=== PATIENT | female | born 1945 | race Caucasian/White ===

== ENCOUNTER 2020-10-17 13:02 | Inpatient (IN) | payer OTHER, MEDICARE ==
[~2020-10-17] VITALS: Ht 144.8 cm; Wt 59.0 kg
[~2020-10-17 13:02] MED LIST: AMLO10 PO; AMOCLA875 PO; Flomax0.4 MG PO; HAWTHORN BERRI565 MG PO; LISI5 PO; LOSA50 PO; Loperamide2 MG PO; METF500C PO; METO50 PO; NATURAL LUTEIN20 MG PO; ONDA4ODT MM; PROC5 PO; Percocet 5-3251 EACH PO; Zofran Odt8 MG SL; Zofran8 MG PO
[2020-10-17 13:22] LABS: BASOPHILS PERCENT AUTO 1 % (0-2); EOSINOPHILS PERCENT AUTO 1 % (0-6); Hemoglobin 13.6 g/dL (11.5-16.0); IMMATURE GRAN ABSOLUTE AUTO 0.94 K/mm3 (0.00-0.10); IMMATURE GRAN PERCENT AUTO 5 % (0-1); LYMPHOCYTES ABSOLUTE AUTO 3.18 K/mm3 (0.84-5.20); LYMPHOCYTES PERCENT AUTO 18 % (21-46); MONOCYTES PERCENT AUTO 3 % (4-13); Mean Corpuscular HGB 31.1 pg (26.0-34.0); Mean Corpuscular Volume 91 fL (80-100); Mean Platelet Volume 10.6 fL (9.1-12.4); NEUTROPHILS ABSOLUTE AUTO 12.86 K/mm3 (1.96-9.15); NEUTROPHILS PERCENT AUTO 72 % (41-73); Platelet Count 309 K/mm3 (150-400); RDW Coefficient Variation 12.5 % (11.7-14.2); RDW Standard Deviation 41.1 fL (35.1-46.3); Red Blood Cell Count 4.38 M/mm3 (3.80-5.20); White Blood Cell Count 17.88 K/mm3 (4.00-11.30)
[2020-10-17 13:37] LABS: International Normalized Ratio 1.05; Prothrombin Time Results 11.3 Sec (9.7-11.5)
[2020-10-17 13:47] LABS: Alanine Aminotransfer (ALT/SGP 71 U/L (12-78); Albumin, Blood 3.4 g/dL (3.4-5.0); Albumin/Globulin Ratio 1.2 (0.8-1.8); Alk Phos 89 U/L (50-136); Anion Gap 8 mmol/L (6-16); Aspartate Aminotrans (AST/SGOT 65 U/L (12-37); Bilirubin, Total 0.8 mg/dL (0.1-1.0); Blood Urea Nitrogen 17 mg/dL (8-24); CO2, Blood 25 mmol/L (21-32); Calcium, Blood 8.7 mg/dL (8.5-10.1); Chloride, Blood 106 mmol/L (98-108); Creatinine, Blood 0.81 mg/dL (0.40-1.00); Ethanol (Alcohol), Blood, Med <3 mg/dL; Globulin, Blood 2.9 g/dL (2.2-4.0); Glomerular Filtration Rate >60 (60-); Glucose, Blood 220 mg/dL (70-99); Potassium, Blood 3.2 mmol/L (3.5-5.5); Sodium, Blood 139 mmol/L (136-145); Total Protein, Blood 6.3 g/dL (6.4-8.2)
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
[2020-10-17 14:46] LABS: Source, Urine Voided
[2020-10-17 15:09] LABS: Appearance, Urine Clear (Clear); Bilirubin, Urine Neg (Neg); Blood, Urine 3+ (Neg); Color, Urine Yellow (P-Yellow); Glucose Qualitative, Urine Neg (Neg); Ketones, Urine 1+ (Neg); Leukocyte Esterase, Urine Neg (Neg); Nitrite, Urine Neg (Neg); Protein, Urine 1+ (Neg); Urobilinogen, Urine NORM (Normal); pH, Urine 6.5 (5.0-8.0)
[2020-10-17 15:36] LABS: Bacteria Few /hpf; Squamous Epithelial Cells Rare /hpf (Few); White Blood Cells, Urine 0-2 /hpf (0-5)
[2020-10-17] MEDS ORDERED: Norco 5-325 Ta1 EACH PO (16:56)
[2020-10-17 17:24] LABS: U Amphetamine Screen Not Detected; U Barbituate Screen Not Detected; U Benzodiazapine Screen Not Detected; U Buprenorphine Screen Not Detected; U Cannabinoids Screen Not Detected; U Cocaine Screen Not Detected; U Methadone Screen Not Detected; U Methamphetamine Screen Not Detected; U Opiates Screen Not Detected; U Oxycodone Screen Not Detected; U Phencyclidine Screen Not Detected
[2020-10-17 17:25] LABS: U Propoxyphene Screen Not Detected
--- NOTE | 2020-10-17 23:05 | NUR ---
RECEIVED REPORT FROM BELKIS ESCALERA RN. PT TRANSPORTED TO MEDICAL FLOOR VIA GURNEY, TRANSFERRED TO BED VIA SLIDE SHEET. C COLLAR IN PLACE. PT AWAKE AND ALERT, ANSWERS QUESTIONS APPROPRIATELY, BUT FALLS ASLEEP EASILY MID-CONVERSATION. DENIES ZUÑIGA. PT SITUATED IN BED, PARTIAL BED BATH GIVEN, TOLERATED WELL. DRSG APPLIED TO POSTERIOR HEAD LACERATION, MODERATE AMOUNT OF SANGUINEOUS DRAINAGE NOTED. DENIES PAIN AT THIS TIME. REMINDED PT TO INFORM STAFF IF PT IS EXPERIENCING PAIN. INDICATED UNDERSTANDING. CALL LIGHT, POSSESSIONS IN REACH, BED IN LOW AND LOCKED POSITION WITH ALARMS ON.
[2020-10-18 01:24] LABS: BASOPHILS ABSOLUTE AUTO 0.02 K/mm3 (0.00-0.23); BASOPHILS PERCENT AUTO 0 % (0-2); EOSINOPHILS PERCENT AUTO 0 % (0-6); Hematocrit 34.2 % (33.0-51.0); Hemoglobin 11.6 g/dL (11.5-16.0); IMMATURE GRAN ABSOLUTE AUTO 0.03 K/mm3 (0.00-0.10); IMMATURE GRAN PERCENT AUTO 0 % (0-1); LYMPHOCYTES PERCENT AUTO 9 % (21-46); MONOCYTES ABSOLUTE AUTO 0.83 K/mm3 (0.16-1.47); MONOCYTES PERCENT AUTO 8 % (4-13); Mean Corpuscular HGB 31.2 pg (26.0-34.0); Mean Corpuscular HGB Conc 33.9 g/dL (31.5-36.5); Mean Corpuscular Volume 92 fL (80-100); Mean Platelet Volume 10.6 fL (9.1-12.4); NEUTROPHILS ABSOLUTE AUTO 9.03 K/mm3 (1.96-9.15); NEUTROPHILS PERCENT AUTO 83 % (41-73); Platelet Count 217 K/mm3 (150-400); RDW Coefficient Variation 12.6 % (11.7-14.2); RDW Standard Deviation 42.3 fL (35.1-46.3); Red Blood Cell Count 3.72 M/mm3 (3.80-5.20); White Blood Cell Count 10.91 K/mm3 (4.00-11.30)
[2020-10-18 01:50] LABS: Anion Gap 5 mmol/L (6-16); Blood Urea Nitrogen 20 mg/dL (8-24); Bun/Creatinine Ratio 21.2 (12.0-20.0); CO2, Blood 26 mmol/L (21-32); Calcium, Blood 7.9 mg/dL (8.5-10.1); Chloride, Blood 105 mmol/L (98-108); Creatinine, Blood 0.94 mg/dL (0.40-1.00); Glomerular Filtration Rate >60 (60-); Glucose, Blood 275 mg/dL (70-99); Phosphorus, Blood 4.7 mg/dL (2.5-4.9); Potassium, Blood 4.1 mmol/L (3.5-5.5); Sodium, Blood 136 mmol/L (136-145)
--- NOTE | 2020-10-18 07:20 | NUR ---
PRODUCTION ASSOCIATE SUMMARY PT ASLEEP, IN NAD. VS REVIEWED,WNL. INCREASINGLY PAINFUL THIS AM, MEDICATED PER EMAR WITH GOOD RELIEF. DRSGS CHANGED TO HEAD AND RFA, SMALL AMOUNT OF SANGUINEOUS DRAINAGE CONTINUES. PT TOLERATED WELL. SLEPT ON AND OFF T/O NIGHT. NO ACUTE NEEDS ASSESSED AT THIS TIME. C-COLLAR REMAINS IN PLACE. CALL LIGHT, POSSESSIONS IN REACH, BED IN LOW AND LOCKED POSITION WITH ALARMS ON. REPORT GIVEN TO RAMONA GONGORA.
--- NOTE | 2020-10-18 10:03 | NUR ---
echocardiogram completed
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
--- NOTE | 2020-10-18 19:37 | NUR ---
SUMM- PT A/O X4, SLEEPY THIS AND EASILY AROUSABLE BUT QUICKLY FALLS ASLEEP- STATED PAIN CONTROLLED WITH MORPHINE BUT RELUCTANT TO TAKE PAIN MEDS- PT HAS ASPEN C SPINE COLLAR IN PLACE AND WEARS AT ALL TIMES. PT GOT UP WITH PHYSICAL THERAPY AND AMBULATED IN THE ROOM. LAC TO HEAD WITH SKYLAR SCANT SS DRAINAGE. R ARM SUTURES WITH VASELINE GAUZE AND KERLEX. DAUGHTER AT BEDSIDE VISITING THIS AFTERNOON.
--- NOTE | 2020-10-19 05:57 | NUR ---
SHIFT SUMMARY PATIENT ALERT AND ORIENTED. WAS MEDICATED PER EMAR FOR PAIN. HAD NO COMPLAINTS OF NAUSEA OR SHORTNESS OF BREATH. PATIENT SLEPT WELL OVERNIGHT. NO ACUTE ISSUES NOTED. IV PATENT AND FLUSHED. BED IN LOWEST POSITION WITH WHEELS LOCKED AND ALARM ON. CALL LIGHT WITHIN REACH. REPORT GIVEN TO ONCOMING RN.
[2020-10-19 10:17] LABS: Anion Gap 4 mmol/L (6-16); Blood Urea Nitrogen 25 mg/dL (8-24); Bun/Creatinine Ratio 29.6 (12.0-20.0); CO2, Blood 28 mmol/L (21-32); Calcium, Blood 8.6 mg/dL (8.5-10.1); Chloride, Blood 102 mmol/L (98-108); Creatinine, Blood 0.84 mg/dL (0.40-1.00); Glomerular Filtration Rate >60 (60-); Glucose, Blood 212 mg/dL (70-99); Potassium, Blood 4.1 mmol/L (3.5-5.5); Sodium, Blood 134 mmol/L (136-145)
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
[2020-10-19] MEDS ORDERED: LISI5 PO (14:15)
[2020-10-19] MEDS ORDERED: METO25ER PO (14:15)
[2020-10-19] MEDS ORDERED: SPIR25 PO (14:15)
[2020-10-19] MEDS ORDERED: LASIX20 M2 PO (14:16)
[2020-10-19] MEDS ORDERED: METF500 PO (14:16)
--- NOTE | 2020-10-19 17:34 | NUR ---
SHIFT SUMMARY PT IS AOX4. PT MEDICATED FOR PAIN X1 THIS AM AND WAS DROWSY T/O SHIFT. PT DENIES N/V, SOB. PT IS ONE PERSON ASSIST FOR TRANSFERS. PT WORKED WITH PT/OT TODAY AND RECOMMENDATION IS HH. PT APPETITE IS GOOD. NO PROCEDURES PERFORMED THIS SHIFT. PT HAD A VISITOR THIS HEIDY. PLAN IS FOR POTENTIAL DC TOMORROW IF PT IS AMENABLE. PT IS IN CHAIR, CALL LIGHT IN REACH.
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
[2020-10-20 05:47] LABS: Anion Gap 5 mmol/L (6-16); Blood Urea Nitrogen 27 mg/dL (8-24); Bun/Creatinine Ratio 36.5 (12.0-20.0); CO2, Blood 31 mmol/L (21-32); Calcium, Blood 8.6 mg/dL (8.5-10.1); Chloride, Blood 98 mmol/L (98-108); Creatinine, Blood 0.74 mg/dL (0.40-1.00); Glomerular Filtration Rate >60 (60-); Glucose, Blood 215 mg/dL (70-99); Potassium, Blood 3.8 mmol/L (3.5-5.5); Sodium, Blood 134 mmol/L (136-145)
[2020-10-20] MEDS ORDERED: TRAM50 PO (14:13)
--- NOTE | 2020-10-20 17:03 | NUR ---
DISCHARGE NOTE PT IV REMOVED BY THIS RN. DC INSTRUCTIONS AND MEDICATIONS REVIEWED WITH PT WHO VERBALIZED AN UNDERSTANDING. PT ASSISTED INTO HOSPITAL PROVIDED PAPER SCRUBS BY [facility]. THIS RN GATHERED PT BELONGINGS. PT WILL BE STAYING WITH [facility] ALONG WITH ORDERS. PT FAMILY ARRANGED MEDICAL TRANSPORTATION. PT ASSISTED INTO WHEELCHAIR WITH BELONGINGS PRESENT. PT LEFT BUILDING WITH FOOD TESTER.
== END 2020-10-20 16:28 | disposition home health service (06) | DRG 551 ==
LOC: ER 13:02 → MEDS 13:04 → ER 20:01 → MEDS 20:01 → ENPENDDIS 10-19 14:32 → MEDS 10-19 23:06
PROVIDERS: Emergency Medicine; Family Medicine; Internal Medicine; ADMIT Surgery
PROC: 0HQDXZZ Repair Right Lower Arm Skin, External Approach (ICD-10-PCS; principal; 2020-10-17)
PROC: 0HQ0XZZ Repair Scalp Skin, External Approach (ICD-10-PCS; 2020-10-17)
PROC: 3E0234Z Introduction of Serum, Toxoid and Vaccine into Muscle, Percutaneous Approach (ICD-10-PCS; 2020-10-17)
DX: S32.018A Other fracture of first lumbar vertebra, initial encounter for closed fracture (principal); I50.43 Acute on chronic combined systolic (congestive) and diastolic (congestive) heart failure; S12.600A Unspecified displaced fracture of seventh cervical vertebra, initial encounter for closed fracture; I11.0 Hypertensive heart disease with heart failure; S32.028A Other fracture of second lumbar vertebra, initial encounter for closed fracture; S01.01XA Laceration without foreign body of scalp, initial encounter; S51.811A Laceration without foreign body of right forearm, initial encounter; Z23 Encounter for immunization; D72.829 Elevated white blood cell count, unspecified; E87.6 Hypokalemia; G47.33 Obstructive sleep apnea (adult) (pediatric); Z91.14 Patient's other noncompliance with medication regimen; E11.9 Type 2 diabetes mellitus without complications; Z88.1 Allergy status to other antibiotic agents; Z88.5 Allergy status to narcotic agent; Z79.84 Long term (current) use of oral hypoglycemic drugs; Z79.899 Other long term (current) drug therapy; Z87.891 Personal history of nicotine dependence; V49.9XXA Car occupant (driver) (passenger) injured in unspecified traffic accident, initial encounter
CPT/HCPCS: 12002; 36415; 51702; 70450; 71045; 71260; 72125; 74177; 80048; 80053; 80069; 81001; 82947; 83036; 83690; 83880; 85025; 85610; 86850; 86900; 86901; 90471; 90714; 93005; 93010; 93306; 94760; 94762; 96374-59; 96375-59; 96376; 97116; 97162; 97166; 97530; 99285-25; A9270; G0378; G0480; J1815; J1940; J2270; J2405; L0160; Q9967

== ENCOUNTER 2020-11-11 13:34 | Emergency (ER) | payer MEDICARE ==
[~2020-11-11] VITALS: Ht 144.8 cm; Wt 62.1 kg
[~2020-11-11 13:34] MED LIST changes: +LASIX20 M2 PO; +METF500 PO; +METO25ER PO; +Norco 5-325 Ta1 EACH PO; +SPIR25 PO; +TRAM50 PO
[2020-11-11 14:05] LABS: BASOPHILS ABSOLUTE AUTO 0.03 K/mm3 (0.00-0.23); BASOPHILS PERCENT AUTO 1 % (0-2); EOSINOPHILS ABSOLUTE AUTO 0.15 K/mm3 (0.00-0.68); EOSINOPHILS PERCENT AUTO 2 % (0-6); Hematocrit 36.6 % (33.0-51.0); Hemoglobin 12.2 g/dL (11.5-16.0); IMMATURE GRAN ABSOLUTE AUTO 0.01 K/mm3 (0.00-0.10); IMMATURE GRAN PERCENT AUTO 0 % (0-1); LYMPHOCYTES ABSOLUTE AUTO 0.96 K/mm3 (0.84-5.20); LYMPHOCYTES PERCENT AUTO 15 % (21-46); MONOCYTES ABSOLUTE AUTO 0.25 K/mm3 (0.16-1.47); MONOCYTES PERCENT AUTO 4 % (4-13); Mean Corpuscular HGB 30.5 pg (26.0-34.0); Mean Corpuscular HGB Conc 33.3 g/dL (31.5-36.5); Mean Corpuscular Volume 92 fL (80-100); Mean Platelet Volume 10.6 fL (9.1-12.4); NEUTROPHILS ABSOLUTE AUTO 5.14 K/mm3 (1.96-9.15); NEUTROPHILS PERCENT AUTO 79 % (41-73); Platelet Count 269 K/mm3 (150-400); RDW Coefficient Variation 12.7 % (11.7-14.2); RDW Standard Deviation 42.1 fL (35.1-46.3); White Blood Cell Count 6.54 K/mm3 (4.00-11.30)
[2020-11-11 14:25] LABS: Alanine Aminotransfer (ALT/SGP 25 U/L (12-78); Albumin, Blood 3.4 g/dL (3.4-5.0); Albumin/Globulin Ratio 1.1 (0.8-1.8); Alk Phos 143 U/L (50-136); Anion Gap 6 mmol/L (6-16); Aspartate Aminotrans (AST/SGOT 23 U/L (12-37); Bilirubin, Total 0.4 mg/dL (0.1-1.0); Blood Urea Nitrogen 19 mg/dL (8-24); Bun/Creatinine Ratio 27.4 (12.0-20.0); CO2, Blood 29 mmol/L (21-32); Calcium, Blood 9.1 mg/dL (8.5-10.1); Chloride, Blood 104 mmol/L (98-108); Creatinine, Blood 0.69 mg/dL (0.40-1.00); Globulin, Blood 3.1 g/dL (2.2-4.0); Glomerular Filtration Rate >60 (60-); Glucose, Blood 260 mg/dL (70-99); Potassium, Blood 3.7 mmol/L (3.5-5.5); Sodium, Blood 139 mmol/L (136-145); Total Protein, Blood 6.5 g/dL (6.4-8.2)
[2020-11-11 15:09] LABS: Source, Urine Clean Catch
[2020-11-11 15:13] LABS: Appearance, Urine Clear (Clear); Bilirubin, Urine Neg (Neg); Blood, Urine Neg (Neg); Color, Urine Yellow (P-Yellow); Glucose Qualitative, Urine 2+ (Neg); Ketones, Urine 2+ (Neg); Leukocyte Esterase, Urine 2+ (Neg); Nitrite, Urine Neg (Neg); Protein, Urine 2+ (Neg); Specific Gravity, Urine 1.025 (1.003-1.022); Urobilinogen, Urine NORM (Normal)
[2020-11-11 15:30] LABS: Red Blood Cells, Urine 0-2 /hpf (0-2)
[2020-11-11 15:31] LABS: Calcium Oxalate Crystals Many /hpf
[2020-11-11 15:32] LABS: Bacteria Rare /hpf; Squamous Epithelial Cells Few /hpf (Few)
[2020-11-11] MEDS ORDERED: ONDA4ODT MM (19:34)
[2020-11-12] MEDS ORDERED: FAMO20 PO (21:06)
[2020-11-12] MEDS ORDERED: METO10 PO (21:06)
== END 2020-11-11 20:11 | disposition home or self-care (01) ==
LOC: ER 13:34
PROVIDERS: Emergency Medicine; Student in an Organized Health Care Education/Training Program
DX: R11.2 Nausea with vomiting, unspecified (principal); I10 Essential (primary) hypertension; E11.9 Type 2 diabetes mellitus without complications; Z88.1 Allergy status to other antibiotic agents; Z88.5 Allergy status to narcotic agent; Z79.84 Long term (current) use of oral hypoglycemic drugs; Z87.891 Personal history of nicotine dependence
CPT/HCPCS: 36415; 71045; 74177; 80053; 81001; 83690; 84484; 85025; 87086; 93005; 93010; 96361; 96374-59; 96375; 99285-25; J1885; J2270; J2405; J2765; J7030; Q9967

== ENCOUNTER 2020-11-12 14:16 | Emergency (ER) | payer OTHER, MEDICARE ==
[~2020-11-12] VITALS: Ht 144.8 cm; Wt 62.1 kg
[~2020-11-12 14:16] MED LIST changes: -FAMO20 PO; -METO10 PO
[2020-11-12 17:04] LABS: BASOPHILS ABSOLUTE AUTO 0.01 K/mm3 (0.00-0.23); BASOPHILS PERCENT AUTO 0 % (0-2); EOSINOPHILS PERCENT AUTO 0 % (0-6); Hematocrit 34.3 % (33.0-51.0); Hemoglobin 11.3 g/dL (11.5-16.0); IMMATURE GRAN ABSOLUTE AUTO 0.03 K/mm3 (0.00-0.10); IMMATURE GRAN PERCENT AUTO 0 % (0-1); LYMPHOCYTES ABSOLUTE AUTO 0.78 K/mm3 (0.84-5.20); LYMPHOCYTES PERCENT AUTO 8 % (21-46); MONOCYTES ABSOLUTE AUTO 0.37 K/mm3 (0.16-1.47); MONOCYTES PERCENT AUTO 4 % (4-13); Mean Corpuscular HGB Conc 32.9 g/dL (31.5-36.5); Mean Corpuscular Volume 94 fL (80-100); NEUTROPHILS ABSOLUTE AUTO 8.51 K/mm3 (1.96-9.15); NEUTROPHILS PERCENT AUTO 88 % (41-73); Platelet Count 276 K/mm3 (150-400); RDW Coefficient Variation 13.2 % (11.7-14.2); RDW Standard Deviation 45.4 fL (35.1-46.3); Red Blood Cell Count 3.65 M/mm3 (3.80-5.20)
[2020-11-12 17:22] LABS: Alanine Aminotransfer (ALT/SGP 24 U/L (12-78); Albumin, Blood 3.4 g/dL (3.4-5.0); Albumin/Globulin Ratio 1.2 (0.8-1.8); Alk Phos 121 U/L (50-136); Anion Gap 5 mmol/L (6-16); Aspartate Aminotrans (AST/SGOT 22 U/L (12-37); Bilirubin, Total 0.5 mg/dL (0.1-1.0); Blood Urea Nitrogen 24 mg/dL (8-24); Bun/Creatinine Ratio 40.7 (12.0-20.0); CO2, Blood 26 mmol/L (21-32); Calcium, Blood 8.7 mg/dL (8.5-10.1); Chloride, Blood 108 mmol/L (98-108); Creatinine, Blood 0.59 mg/dL (0.40-1.00); Globulin, Blood 2.8 g/dL (2.2-4.0); Glomerular Filtration Rate >60 (60-); Glucose, Blood 287 mg/dL (70-99); Potassium, Blood 3.6 mmol/L (3.5-5.5); Sodium, Blood 139 mmol/L (136-145); Total Protein, Blood 6.2 g/dL (6.4-8.2)
--- NOTE | 2020-11-12 19:01 | NUR ---
Stat echo performed. Dr. Osuna notified.
[2020-11-12] MEDS ORDERED: FAMO20 PO (21:06)
[2020-11-12] MEDS ORDERED: METO10 PO (21:06)
== END 2020-11-12 21:40 | disposition home or self-care (01) ==
LOC: ER 14:16
PROVIDERS: Student in an Organized Health Care Education/Training Program
DX: R10.13 Epigastric pain (principal); I10 Essential (primary) hypertension; E11.9 Type 2 diabetes mellitus without complications; Z88.1 Allergy status to other antibiotic agents; Z88.5 Allergy status to narcotic agent; Z87.891 Personal history of nicotine dependence; Z79.899 Other long term (current) drug therapy
CPT/HCPCS: 36415; 71045; 76705; 80053; 83690; 84484; 85025; 93005; 93010; 93306; 96374; 96375; 96376; 99284-25; J1885; J1940

== ENCOUNTER → 2020-11-12 | Outpatient (CLI) | payer MEDICARE ==
[~2020-11-12] MED LIST changes: +FAMO20 PO; +METO10 PO
[2020-11-12 10:18] LABS: BASOPHILS ABSOLUTE AUTO 0.01 K/mm3 (0.00-0.23); BASOPHILS PERCENT AUTO 0 % (0-2); EOSINOPHILS ABSOLUTE AUTO 0.19 K/mm3 (0.00-0.68); EOSINOPHILS PERCENT AUTO 2 % (0-6); Hematocrit 36.2 % (33.0-51.0); Hemoglobin 12.4 g/dL (11.5-16.0); IMMATURE GRAN ABSOLUTE AUTO 0.03 K/mm3 (0.00-0.10); IMMATURE GRAN PERCENT AUTO 0 % (0-1); LYMPHOCYTES PERCENT AUTO 8 % (21-46); MONOCYTES PERCENT AUTO 5 % (4-13); Mean Corpuscular HGB 31.4 pg (26.0-34.0); Mean Corpuscular HGB Conc 34.3 g/dL (31.5-36.5); Mean Corpuscular Volume 92 fL (80-100); Mean Platelet Volume 10.9 fL (9.1-12.4); NEUTROPHILS ABSOLUTE AUTO 7.61 K/mm3 (1.96-9.15); NEUTROPHILS PERCENT AUTO 85 % (41-73); Platelet Count 289 K/mm3 (150-400); RDW Coefficient Variation 13.2 % (11.7-14.2); RDW Standard Deviation 43.8 fL (35.1-46.3); Red Blood Cell Count 3.95 M/mm3 (3.80-5.20); White Blood Cell Count 8.94 K/mm3 (4.00-11.30)
[2020-11-12 10:21] LABS: Anion Gap 10 mmol/L (6-16); Blood Urea Nitrogen 22 mg/dL (8-24); Bun/Creatinine Ratio 25.9 (12.0-20.0); CO2, Blood 29 mmol/L (21-32); Calcium, Blood 8.9 mg/dL (8.5-10.1); Chloride, Blood 102 mmol/L (98-108); Creatinine, Blood 0.85 mg/dL (0.40-1.00); Glomerular Filtration Rate >60 (60-); Glucose, Blood 313 mg/dL (70-99); Potassium, Blood 3.6 mmol/L (3.5-5.5); Sodium, Blood 141 mmol/L (136-145)
== END | disposition home or self-care (01) ==
LOC: LAB SHORT 10:13
PROVIDERS: Physician Assistant Surgical
DX: R11.2 Nausea with vomiting, unspecified (principal)
CPT/HCPCS: 80048; 85025

== ENCOUNTER → 2021-05-11 | Outpatient (CLI) | payer OTHER, MEDICARE ==
[~2021-05-11] MED LIST changes: +FAMO20 PO; +METO10 PO
[2021-05-11 11:46] LABS: BASOPHILS ABSOLUTE AUTO 0.01 K/mm3 (0.00-0.23); BASOPHILS PERCENT AUTO 0 % (0-2); EOSINOPHILS ABSOLUTE AUTO 0.01 K/mm3 (0.00-0.68); EOSINOPHILS PERCENT AUTO 0 % (0-6); Hematocrit 42.7 % (33.0-51.0); Hemoglobin 14.7 g/dL (11.5-16.0); IMMATURE GRAN ABSOLUTE AUTO 0.02 K/mm3 (0.00-0.10); IMMATURE GRAN PERCENT AUTO 0 % (0-1); LYMPHOCYTES ABSOLUTE AUTO 0.93 K/mm3 (0.84-5.20); LYMPHOCYTES PERCENT AUTO 16 % (21-46); MONOCYTES ABSOLUTE AUTO 0.61 K/mm3 (0.16-1.47); MONOCYTES PERCENT AUTO 11 % (4-13); Mean Corpuscular HGB 32.1 pg (26.0-34.0); Mean Corpuscular HGB Conc 34.4 g/dL (31.5-36.5); Mean Corpuscular Volume 93 fL (80-100); NEUTROPHILS ABSOLUTE AUTO 4.16 K/mm3 (1.96-9.15); NEUTROPHILS PERCENT AUTO 73 % (41-73); RDW Coefficient Variation 11.9 % (11.7-14.2); Red Blood Cell Count 4.58 M/mm3 (3.80-5.20); White Blood Cell Count 5.74 K/mm3 (4.00-11.30)
[2021-05-11 11:52] LABS: Mean Platelet Volume 11.4 fL (9.1-12.4)
[2021-05-11 12:01] LABS: Alanine Aminotransfer (ALT/SGP 24 U/L (12-78); Albumin, Blood 3.9 g/dL (3.4-5.0); Albumin/Globulin Ratio 1.4 (0.8-1.8); Alk Phos 78 U/L (40-126); Anion Gap 10 mmol/L (6-16); Aspartate Aminotrans (AST/SGOT 26 U/L (12-37); Bilirubin, Total 0.3 mg/dL (0.1-1.0); Blood Urea Nitrogen 18 mg/dL (8-24); Bun/Creatinine Ratio 26.1 (12.0-20.0); CO2, Blood 27 mmol/L (21-32); Calcium, Blood 8.7 mg/dL (8.5-10.1); Chloride, Blood 103 mmol/L (98-108); Creatinine, Blood 0.69 mg/dL (0.40-1.00); Globulin, Blood 2.7 g/dL (2.2-4.0); Glomerular Filtration Rate >60 (60-); Glucose, Blood 154 mg/dL (70-99); Potassium, Blood 3.8 mmol/L (3.5-5.5); Sodium, Blood 140 mmol/L (136-145); Total Protein, Blood 6.6 g/dL (6.4-8.2)
[2021-05-11 12:31] LABS: Platelet Count 155 K/mm3 (150-400)
== END ==
LOC: LAB SHORT 11:39
PROVIDERS: Family Medicine
DX: E86.0 Dehydration (principal); R13.19 Other dysphagia
CPT/HCPCS: 80053; 85025; 87081

== ENCOUNTER 2021-07-21 17:53 | Observation (INO) | payer MEDICARE ==
[~2021-07-21] VITALS: Ht 144.8 cm; Wt 53.2 kg
[2021-07-21 18:22] LABS: BASOPHILS ABSOLUTE AUTO 0.02 K/mm3 (0.00-0.23); BASOPHILS PERCENT AUTO 0 % (0-2); EOSINOPHILS PERCENT AUTO 0 % (0-6); Hematocrit 42.2 % (33.0-51.0); Hemoglobin 14.2 g/dL (11.5-16.0); IMMATURE GRAN ABSOLUTE AUTO 0.04 K/mm3 (0.00-0.10); IMMATURE GRAN PERCENT AUTO 0 % (0-1); LYMPHOCYTES ABSOLUTE AUTO 0.53 K/mm3 (0.84-5.20); LYMPHOCYTES PERCENT AUTO 6 % (21-46); MONOCYTES ABSOLUTE AUTO 0.14 K/mm3 (0.16-1.47); MONOCYTES PERCENT AUTO 2 % (4-13); Mean Corpuscular HGB 31.9 pg (26.0-34.0); Mean Corpuscular HGB Conc 33.6 g/dL (31.5-36.5); Mean Corpuscular Volume 95 fL (80-100); Mean Platelet Volume 11.8 fL (9.1-12.4); NEUTROPHILS PERCENT AUTO 92 % (41-73); Platelet Count 234 K/mm3 (150-400); RDW Coefficient Variation 12.3 % (11.7-14.2); RDW Standard Deviation 43.1 fL (35.1-46.3); Red Blood Cell Count 4.45 M/mm3 (3.80-5.20); White Blood Cell Count 9.13 K/mm3 (4.00-11.30)
[2021-07-21 18:34] LABS: Alanine Aminotransfer (ALT/SGP 48 U/L (12-78); Albumin, Blood 3.4 g/dL (3.4-5.0); Albumin/Globulin Ratio 1.3 (0.8-1.8); Alk Phos 69 U/L (50-136); Anion Gap 4 mmol/L (6-16); Aspartate Aminotrans (AST/SGOT 27 U/L (12-37); Bilirubin, Total 0.9 mg/dL (0.1-1.0); Blood Urea Nitrogen 29 mg/dL (8-24); Bun/Creatinine Ratio 41.5 (12.0-20.0); CO2, Blood 29 mmol/L (21-32); Chloride, Blood 105 mmol/L (98-108); Globulin, Blood 2.6 g/dL (2.2-4.0); Glomerular Filtration Rate >60 (60-); Glucose, Blood 348 mg/dL (70-99); Potassium, Blood 3.9 mmol/L (3.5-5.5); Sodium, Blood 138 mmol/L (136-145)
[2021-07-21] MEDS ORDERED: TORS10 PO (20:10)
[2021-07-21 22:15] LABS: Source, Urine Clean Catch
[2021-07-21 22:24] LABS: Appearance, Urine Clear (Clear); Bilirubin, Urine Neg (Neg); Blood, Urine Neg (Neg); Color, Urine Yellow (P-Yellow); Glucose Qualitative, Urine 4+ (Neg); Ketones, Urine 4+ (Neg); Leukocyte Esterase, Urine Neg (Neg); Nitrite, Urine Neg (Neg); Protein, Urine 1+ (Neg); Urobilinogen, Urine NORM (Normal)
--- NOTE | 2021-07-22 03:06 | NUR ---
ADMISSION: REPORT WAS RECIEVED FROM ER NURSE. PATIENT COMES TO FLOOR VIA STRETCHER. BP IS ELEVATED, PATIENT IS ASYMPTOMATIC. PATIENT IS ORIENTED TO ROOM AND CALL MUNOZ.
[2021-07-22 06:01] LABS: Influenza A, PCR NEGATIVE (NEGATIVE); Influenza B, PCR NEGATIVE (NEGATIVE); Resp Syncytial Virus, PCR NEGATIVE (NEGATIVE); SARS-Cov-2 (COVID-19) PCR, MMC NEGATIVE (NEGATIVE)
--- NOTE | 2021-07-22 06:47 | NUR ---
SHIFT SUMMARY: DR HAQUE WAS NOTIFIED OF BLOOD GLUCOSE LEVEL AT 375. D51/2 NS WAS INFUSING AT 150. IVF ARE CHANGED TO NS @75X 1 BAG. CLEAR LIQUID DIET IS ALSO ORDERED ALONG WITH TELI. PATIENT WAS ASSISTED TO THE BATHROOM WITH SBA OF 1, WEAK BUT STEADY GAIT IS OBSERVED. NO NAUSEA REPORTED.
--- NOTE | 2021-07-22 16:34 | NUR ---
SHIFT SUMMARY A/OX4, SBA TO BATHROOM. PT ABLE TO SHOWER TODAY BUT STATES SHE STILL FEELS VERY WEAK. TOLERATING CLEAR LIQUID DIET. HOSPITALIST NOTIFIED OF RECENT BLOOD SUGARS. VSS, NO ACUTE CHANGES AT THIS TIME. BED IN LOWEST POSITION WITH CALL LIGHT IN REACH. WILL CONTINUE TO MONITOR AND REPORT TO ONCOMING RN.
[2021-07-23 04:17] LABS: BASOPHILS ABSOLUTE AUTO 0.04 K/mm3 (0.00-0.23); BASOPHILS PERCENT AUTO 0 % (0-2); EOSINOPHILS ABSOLUTE AUTO 0.07 K/mm3 (0.00-0.68); EOSINOPHILS PERCENT AUTO 1 % (0-6); Hematocrit 41.5 % (33.0-51.0); IMMATURE GRAN ABSOLUTE AUTO 0.03 K/mm3 (0.00-0.10); IMMATURE GRAN PERCENT AUTO 0 % (0-1); LYMPHOCYTES ABSOLUTE AUTO 1.11 K/mm3 (0.84-5.20); LYMPHOCYTES PERCENT AUTO 10 % (21-46); MONOCYTES ABSOLUTE AUTO 0.63 K/mm3 (0.16-1.47); MONOCYTES PERCENT AUTO 6 % (4-13); Mean Corpuscular HGB 31.9 pg (26.0-34.0); Mean Corpuscular HGB Conc 33.7 g/dL (31.5-36.5); Mean Corpuscular Volume 95 fL (80-100); Mean Platelet Volume 11.2 fL (9.1-12.4); NEUTROPHILS PERCENT AUTO 83 % (41-73); Platelet Count 247 K/mm3 (150-400); RDW Coefficient Variation 12.2 % (11.7-14.2); Red Blood Cell Count 4.39 M/mm3 (3.80-5.20); White Blood Cell Count 11.08 K/mm3 (4.00-11.30)
[2021-07-23 04:36] LABS: Alanine Aminotransfer (ALT/SGP 54 U/L (12-78); Albumin, Blood 3.2 g/dL (3.4-5.0); Albumin/Globulin Ratio 1.2 (0.8-1.8); Alk Phos 68 U/L (50-136); Anion Gap 6 mmol/L (6-16); Aspartate Aminotrans (AST/SGOT 36 U/L (12-37); Bilirubin, Total 0.6 mg/dL (0.1-1.0); Blood Urea Nitrogen 26 mg/dL (8-24); Bun/Creatinine Ratio 34.4 (12.0-20.0); CO2, Blood 31 mmol/L (21-32); Chloride, Blood 101 mmol/L (98-108); Creatinine, Blood 0.76 mg/dL (0.40-1.00); Globulin, Blood 2.7 g/dL (2.2-4.0); Glomerular Filtration Rate >60 (60-); Glucose, Blood 173 mg/dL (70-99); Potassium, Blood 3.2 mmol/L (3.5-5.5); Sodium, Blood 138 mmol/L (136-145); Total Protein, Blood 5.9 g/dL (6.4-8.2)
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
[2021-07-23] MEDS ORDERED: GLIP2.5ER PO (10:57)
[2021-07-23] MEDS ORDERED: METO50ER PO (10:58)
[2021-07-23] MEDS ORDERED: METF500C PO (10:58)
--- NOTE | 2021-07-23 11:32 | NUR ---
PATIENT D/C'D TO HOME. HOME HEALTH ORDERED, HOWEVER PATIENT IS REFUSING. DR. FRASER NOTIFIED. F/U APPT MADE FOR SATURDAY 07/29 WITH PCP. DC INSTUCTIONS AND EDUCATION DISCUSSED WITH PATIENT AND COPY PROVIDED. RX MEDICATIONS FAXED TO [facility]. PATIENT DENIES ANY FURTHER QUESTIONS OR CONCERNS.
== END 2021-07-23 11:30 | disposition home health service (06) ==
LOC: ER 17:53 → MEDS 17:54
PROVIDERS: Emergency Medicine; Physician Assistant; ADMIT Internal Medicine
DX: K52.9 Noninfective gastroenteritis and colitis, unspecified (principal); B02.9 Zoster without complications; E86.0 Dehydration; I31.3 Pericardial effusion (noninflammatory); I11.0 Hypertensive heart disease with heart failure; I50.9 Heart failure, unspecified; E11.65 Type 2 diabetes mellitus with hyperglycemia; G47.30 Sleep apnea, unspecified; Z91.14 Patient's other noncompliance with medication regimen; Z87.891 Personal history of nicotine dependence; Z79.82 Long term (current) use of aspirin; Z20.822 Contact with and (suspected) exposure to COVID-19
CPT/HCPCS: 0241U; 36415; 74177; 80053; 82947; 85025; 86850; 86900; 86901; 93005; 93010; 96374; 96375; 99285-25; A9270; C9113; G0378; J0780; J1815; J2550; J7030; J7042; Q9967

== ENCOUNTER → 2021-08-13 | Outpatient (CLI) | payer MEDICARE ==
[~2021-08-13] MED LIST changes: +GLIP2.5ER PO; +METO50ER PO; +TORS10 PO
[2021-08-13 11:38] LABS: BASOPHILS ABSOLUTE AUTO 0.03 K/mm3 (0.00-0.23); BASOPHILS PERCENT AUTO 1 % (0-2); EOSINOPHILS ABSOLUTE AUTO 0.05 K/mm3 (0.00-0.68); EOSINOPHILS PERCENT AUTO 1 % (0-6); Hematocrit 39.1 % (33.0-51.0); Hemoglobin 13.4 g/dL (11.5-16.0); IMMATURE GRAN ABSOLUTE AUTO 0.01 K/mm3 (0.00-0.10); IMMATURE GRAN PERCENT AUTO 0 % (0-1); LYMPHOCYTES ABSOLUTE AUTO 1.14 K/mm3 (0.84-5.20); LYMPHOCYTES PERCENT AUTO 20 % (21-46); MONOCYTES ABSOLUTE AUTO 0.27 K/mm3 (0.16-1.47); MONOCYTES PERCENT AUTO 5 % (4-13); Mean Corpuscular HGB 32.4 pg (26.0-34.0); Mean Corpuscular HGB Conc 34.3 g/dL (31.5-36.5); Mean Corpuscular Volume 94 fL (80-100); NEUTROPHILS ABSOLUTE AUTO 4.31 K/mm3 (1.96-9.15); NEUTROPHILS PERCENT AUTO 74 % (41-73); Platelet Count 221 K/mm3 (150-400); RDW Coefficient Variation 13.2 % (11.7-14.2); RDW Standard Deviation 45.9 fL (35.1-46.3); Red Blood Cell Count 4.14 M/mm3 (3.80-5.20); White Blood Cell Count 5.81 K/mm3 (4.00-11.30)
[2021-08-13 11:57] LABS: Albumin, Blood 3.1 g/dL (3.4-5.0); Albumin/Globulin Ratio 1.2 (0.8-1.8); Bilirubin, Total 0.9 mg/dL (0.1-1.0); Bun/Creatinine Ratio 28.7 (12.0-20.0); Calcium, Blood 8.8 mg/dL (8.5-10.1); Creatinine, Blood 1.01 mg/dL (0.40-1.00); Globulin, Blood 2.5 g/dL (2.2-4.0); Potassium, Blood 3.8 mmol/L (3.5-5.5); Thyroid Stimulating Hormone 2.515 uIU/mL (0.360-4.800); Total Protein, Blood 5.6 g/dL (6.4-8.2)
== END | disposition home or self-care (01) ==
LOC: LAB SHORT 11:33
PROVIDERS: Chiropractor
DX: R22.43 Localized swelling, mass and lump, lower limb, bilateral (principal); R53.83 Other fatigue
CPT/HCPCS: 80053; 83880; 84443; 85025

== ENCOUNTER → 2022-03-10 | Outpatient (CLI) | payer OTHER ==
[2022-03-10 17:23] LABS: BASOPHILS ABSOLUTE AUTO 0.07 K/mm3 (0.00-0.23); BASOPHILS PERCENT AUTO 1 % (0-2); EOSINOPHILS ABSOLUTE AUTO 0.14 K/mm3 (0.00-0.68); EOSINOPHILS PERCENT AUTO 2 % (0-6); Hematocrit 40.8 % (33.0-51.0); Hemoglobin 13.9 g/dL (11.5-16.0); IMMATURE GRAN ABSOLUTE AUTO 0.01 K/mm3 (0.00-0.10); IMMATURE GRAN PERCENT AUTO 0 % (0-1); LYMPHOCYTES ABSOLUTE AUTO 1.26 K/mm3 (0.84-5.20); LYMPHOCYTES PERCENT AUTO 18 % (21-46); MONOCYTES PERCENT AUTO 6 % (4-13); Mean Corpuscular HGB 33.7 pg (26.0-34.0); Mean Corpuscular HGB Conc 34.1 g/dL (31.5-36.5); Mean Corpuscular Volume 99 fL (80-100); NEUTROPHILS ABSOLUTE AUTO 5.03 K/mm3 (1.96-9.15); NEUTROPHILS PERCENT AUTO 73 % (41-73); Platelet Count 190 K/mm3 (150-400); RDW Coefficient Variation 12.9 % (11.7-14.2); RDW Standard Deviation 46.6 fL (35.1-46.3); Red Blood Cell Count 4.13 M/mm3 (3.80-5.20); White Blood Cell Count 6.91 K/mm3 (4.00-11.30)
[2022-03-10 17:33] LABS: Albumin, Blood 3.2 g/dL (3.4-5.0); Albumin/Globulin Ratio 1.2 (0.8-1.8); Bilirubin, Total 1.1 mg/dL (0.1-1.0); Bun/Creatinine Ratio 34.9 (12.0-20.0); Calcium, Blood 8.8 mg/dL (8.5-10.1); Creatinine, Blood 1.06 mg/dL (0.40-1.00); Globulin, Blood 2.6 g/dL (2.2-4.0); Potassium, Blood 3.9 mmol/L (3.5-5.5); Total Protein, Blood 5.8 g/dL (6.4-8.2)
== END | disposition home or self-care (01) ==
LOC: LAB SHORT 17:19
PROVIDERS: Family Medicine
DX: R06.00 Dyspnea, unspecified (principal)
CPT/HCPCS: 80053; 83880; 85025

== ENCOUNTER 2022-04-28 20:43 | Observation (INO) | payer OTHER ==
[~2022-04-28] VITALS: Ht 144.8 cm; Wt 50.8 kg
[2022-04-28 21:21] LABS: BASOPHILS ABSOLUTE AUTO 0.04 K/mm3 (0.00-0.23); BASOPHILS PERCENT AUTO 0 % (0-2); EOSINOPHILS ABSOLUTE AUTO 0.01 K/mm3 (0.00-0.68); EOSINOPHILS PERCENT AUTO 0 % (0-6); Hematocrit 39.4 % (33.0-51.0); Hemoglobin 13.5 g/dL (11.5-16.0); IMMATURE GRAN ABSOLUTE AUTO 0.05 K/mm3 (0.00-0.10); IMMATURE GRAN PERCENT AUTO 1 % (0-1); LYMPHOCYTES ABSOLUTE AUTO 0.65 K/mm3 (0.84-5.20); LYMPHOCYTES PERCENT AUTO 6 % (21-46); MONOCYTES ABSOLUTE AUTO 0.34 K/mm3 (0.16-1.47); MONOCYTES PERCENT AUTO 3 % (4-13); Mean Corpuscular HGB 33.7 pg (26.0-34.0); Mean Corpuscular HGB Conc 34.3 g/dL (31.5-36.5); Mean Corpuscular Volume 98 fL (80-100); Mean Platelet Volume 11.4 fL (9.1-12.4); NEUTROPHILS ABSOLUTE AUTO 9.14 K/mm3 (1.96-9.15); NEUTROPHILS PERCENT AUTO 89 % (41-73); Platelet Count 301 K/mm3 (150-400); RDW Coefficient Variation 13.3 % (11.7-14.2); RDW Standard Deviation 47.3 fL (35.1-46.3); Red Blood Cell Count 4.01 M/mm3 (3.80-5.20); White Blood Cell Count 10.23 K/mm3 (4.00-11.30)
[2022-04-28 21:40] LABS: Albumin, Blood 3.6 g/dL (3.4-5.0); Albumin/Globulin Ratio 1.1 (0.8-1.8); Bilirubin, Total 3.2 mg/dL (0.1-1.0); Bun/Creatinine Ratio 42.4 (12.0-20.0); Calcium, Blood 9.7 mg/dL (8.5-10.1); Creatinine, Blood 0.97 mg/dL (0.40-1.00); Globulin, Blood 3.2 g/dL (2.2-4.0); Potassium, Blood 3.2 mmol/L (3.5-5.5); Total Protein, Blood 6.8 g/dL (6.4-8.2)
[2022-04-28 22:12] LABS: Influenza A, PCR NEGATIVE (NEGATIVE); Influenza B, PCR NEGATIVE (NEGATIVE); Resp Syncytial Virus, PCR NEGATIVE (NEGATIVE); SARS-Cov-2 (COVID-19) PCR, MMC NEGATIVE (NEGATIVE)
[2022-04-28 23:08] LABS: Source, Urine Straight Cath
[2022-04-28 23:10] LABS: Blood, Urine Neg (Neg); Glucose Qualitative, Urine Neg (Neg); Ketones, Urine Neg (Neg); Leukocyte Esterase, Urine Neg (Neg); Nitrite, Urine Neg (Neg); Protein, Urine 2+ (Neg); Specific Gravity, Urine 1.025 (1.003-1.022); Urobilinogen, Urine 2+ (Normal)
[2022-04-28 23:21] LABS: Bilirubin, Urine 1+ (Neg); Color, Urine Yellow (P-Yellow)
[2022-04-28 23:23] LABS: Appearance, Urine Hazy (Clear)
[2022-04-28 23:24] LABS: Bacteria Mod /hpf; Red Blood Cells, Urine 0-2 /hpf (0-2); Squamous Epithelial Cells Rare /hpf (Few); White Blood Cells, Urine 0-2 /hpf (0-5)
--- NOTE | 2022-04-29 04:02 | NUR ---
ADMIT NEW ER ADMIT WITH N/V + GALLSTONES. PT ALERT BUT ONLY ORIENTED TO SELF AND PLACE. SHE IS FORGETFUL WITH HER SITUATION AND TREATMENT PLAN. REORIENTS EASILY AND IS COOPERATIVE, BUT STILL TRYING TO GET OUT OF BED WITHOUT ASSISTANCE. BED ALARM IN PLACE. 1 MINIMAL ASSIST WITH FWW + GB TO BRP. TELE READING SR IN THE 90S. TELE REPORTS PROLONGED QTC. DR. BASS NOTIFIED AND ZOAN DC'D AND PHENERGAN ORDERED. PT REPORTS 5/10 ABD PAIN AND NAUSEA, NO EMESIS. NPO FOR POSSIBLE PROCEDURE TODAY. CALL LIGHT WITHIN REACH.
[2022-04-29 05:43] LABS: BASOPHILS ABSOLUTE AUTO 0.04 K/mm3 (0.00-0.23); BASOPHILS PERCENT AUTO 0 % (0-2); EOSINOPHILS PERCENT AUTO 0 % (0-6); Hematocrit 43.3 % (33.0-51.0); Hemoglobin 14.4 g/dL (11.5-16.0); IMMATURE GRAN ABSOLUTE AUTO 0.13 K/mm3 (0.00-0.10); IMMATURE GRAN PERCENT AUTO 1 % (0-1); LYMPHOCYTES ABSOLUTE AUTO 0.65 K/mm3 (0.84-5.20); LYMPHOCYTES PERCENT AUTO 6 % (21-46); MONOCYTES ABSOLUTE AUTO 0.19 K/mm3 (0.16-1.47); MONOCYTES PERCENT AUTO 2 % (4-13); Mean Corpuscular HGB 33.3 pg (26.0-34.0); Mean Corpuscular HGB Conc 33.3 g/dL (31.5-36.5); Mean Corpuscular Volume 100 fL (80-100); NEUTROPHILS ABSOLUTE AUTO 10.87 K/mm3 (1.96-9.15); NEUTROPHILS PERCENT AUTO 92 % (41-73); RDW Coefficient Variation 13.7 % (11.7-14.2); RDW Standard Deviation 48.6 fL (35.1-46.3); Red Blood Cell Count 4.32 M/mm3 (3.80-5.20); White Blood Cell Count 11.88 K/mm3 (4.00-11.30)
[2022-04-29 06:08] LABS: Mean Platelet Volume 11.8 fL (9.1-12.4); Platelet Count 249 K/mm3 (150-400)
--- NOTE | 2022-04-29 08:35 | NUR ---
PATIENTS CBG WAS 407. THIS RN GAVE MAX DOSE ON EMDIUM SLIDING SCALE, [address] MAYS, VERBAL ORDERS GIVEN TO GIVE 10U LANTUS NOW AND PROVIDER WILL REASSES FOR FURTHER PLANS.
--- NOTE | 2022-04-29 09:05 | NUR ---
TELE CHANGES STAPLE CUTTER ISMAEL NOTIFIED THIS RN @ 0851 THAT PATIENT HAD PROLONGED QTC INTERVAL OF .56 @ 0600 TODAY. ALSO NOTED THAT PATIENTS CURRENT QTC INTERVAL IS .57 AT [address]. SPOKE WITH [address] MAYS IN PERSON AND NOTIFIED OF THIS CHANGE. GAVE VERBAL ORDERS TO ADD MAGNESIUM LABS TO CURRENT LABS PENDING.
[2022-04-29 10:08] LABS: Bilirubin, Direct 2.1 mg/dL (0.0-0.3); Bilirubin, Total 3.1 mg/dL (0.1-1.0)
--- NOTE | 2022-04-29 12:30 | NUR ---
PT ARRIVED TO ROOM VIA W/C FROM SURGICAL. REPORTED MRI UNABLE TO BE COMPLETED DUE TO LACK OF INFORMATION ABOUT METAL HX. SETTLED IN TO RECLINER CHAIR AND ORIENTED TO ROOM.
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
[2022-04-29] MEDS ORDERED: PREG75 PO (14:35)
[2022-04-29] MEDS ORDERED: CARV3.125 PO (14:36)
[2022-04-29] MEDS ORDERED: LIDO700A20 TOP (14:36)
[2022-04-29] MEDS ORDERED: TRAZ50 PO (14:40)
--- NOTE | 2022-04-29 18:37 | NUR ---
SHIFT SUMMARY PT UP TO BATHROOM SEVERAL TIMES SINCE IV LASIX GIVEN. APPEARS ORIENTED ENOUGH TO COMPLETE MRI FORM. DOES REPORT STENT PLACEMENT AND R ARM INJURY WITH SUBSEQUENT REPAIR USING METAL. DID REPORT BACK DISCOMFORT UP R UPPER BACK WHEN SITTING UP. SLEEPING MOST OF AFTERNOON. CALM, COOPERATIVE, AND REDIRECTABLE.
--- NOTE | 2022-04-30 05:00 | NUR ---
SHIFT SUMMARY PT A&O X 2- PT C/O NAUSEA AND PAIN AT BEGINNING OF SHIFT- MEDICATED WITH PHENERGAN AND FENTANYL- PT UP TO BR MULTIPLE TIMES- PT DROWSY- PT AMBULATED WITH SBA - PT IMPULSIVE AND FORGETS TO USE CALL LIGHT- MONITOR CALLED WHEN MOVING TO SIDE OF BED- PT REDIRECTABLE- REPLACED MEPILEX ON SACRUM AREA- STAGE 1 NOTED IN THAT AREA- PT SLEPT T/O NIGHT WITHOUT ANY MORE COMPLAINTS OF PAIN OR NAUSEA-BED LOW POSITION, CALL LIGHT WITHIN REACH, BED ALARM IN PLACE
[2022-04-30 06:21] LABS: Albumin, Blood 3.1 g/dL (3.4-5.0); Albumin/Globulin Ratio 1.1 (0.8-1.8); Bilirubin, Total 1.7 mg/dL (0.1-1.0); Bun/Creatinine Ratio 41.3 (12.0-20.0); Calcium, Blood 9.2 mg/dL (8.5-10.1); Creatinine, Blood 1.09 mg/dL (0.40-1.00); Globulin, Blood 2.9 g/dL (2.2-4.0); Potassium, Blood 3.5 mmol/L (3.5-5.5)
--- NOTE | 2022-04-30 15:54 | NUR ---
EVENING NOTE PT ALERT. MEDCAITED FOR PAIN X1 AND NAUSEA X1. SHE ISN'T INTERESTED IN CLEAR LIQUID DIET. UP TO CHAIR FOR THE MORNING. TOLERATED A SHOWER. AMBULATES WITH FWW. GAIT STEADY. ABD SOFT, TENDER AND ROUND. NO BM TODAY. IV PATENT. CONTINUE POC.
--- NOTE | 2022-04-30 17:58 | NUR ---
DINNER REFUSED DINNER TRAY OF CLEAR LIQUIDS. SHE DENIED NAUSEA OR PAIN. SHE DID WALK TO THE END OF THE HALLWAY WITH SBA. GAIT STEADY. CONTINUE POC.
[2022-05-01 06:35] LABS: Albumin, Blood 3.3 g/dL (3.4-5.0); Albumin/Globulin Ratio 1.2 (0.8-1.8); Bilirubin, Total 1.4 mg/dL (0.1-1.0); Bun/Creatinine Ratio 34.5 (12.0-20.0); Calcium, Blood 9.2 mg/dL (8.5-10.1); Creatinine, Blood 0.93 mg/dL (0.40-1.00); Globulin, Blood 2.8 g/dL (2.2-4.0); Total Protein, Blood 6.1 g/dL (6.4-8.2)
--- NOTE | 2022-05-01 06:43 | NUR ---
BRAYAN HAD DIFFICULTY SLEEPING LAST NIGHT. ONGOING COMPLAINTS OF RIGHT FLANK PAIN WERE TREATED PER ORDERED INTERVAL WITH 0.25 MCG fENTANYL WITH GOOD RELIEF. PATIENT HAD TWO EPISODES OF VERY LOOSE STOOLS IN THE MIDDLE OF THE NIGHT. ONCE SHE WAS IN THE BATHROOM, IT WAS DIFFICULT FOR HER TO CONTROL THEM. BENEDRYL 12.5 MG IV GIVEN FOR ITCHY EXTREMITIES. NPO SINCE 2400 FOR SURGERY
--- NOTE | 2022-05-01 09:41 | NUR ---
SURGERY PT TRANSFERED TO SURGERY AT 0928 VIA [facility]. PT ABLE TO WALK TO [facility]. TELE NOTIFIED OF TRANSFER. CONTINUE POC.
--- NOTE | 2022-05-01 09:57 | NUR ---
THE PATIENT WAS BROUGHT TO DAY SURGERY FOR HER PROCEDURE.
--- NOTE | 2022-05-01 11:18 | NUR ---
05/01/22 1118 Theodora Friedman PT ON SCHEDULED ANTIBIOTICS AND RECIEVED PRIOR TO ARRIVAL TO OR. CONFIRMED WITH DR JOHN.
--- NOTE | 2022-05-01 13:30 | NUR ---
POST OP PT REPORT RECEIVED FROM PACU. PT RETURNED TO ROOM VIA GURNEY AWAKE BUT SLEEPY. TRANSFERED TO NEW BED WITH SLIDER AND 3 ASSIST. PT EXPRESSED NO DISCOMFORT. ABD SOFT, ROUND WITH 4 DRESSINGS NOTED. NO SWELLING, DRAINAGE OR BRUISING NOTED. VSS. IV FLUIDS STOPPED PER ORDER. CONTINUE POC.
--- NOTE | 2022-05-01 17:49 | NUR ---
EVENING NOTE PT AWKAE AND ALERT POST SURGERY. SHE JUST WALKED TO THE BATHROOM AND VOIDED. PASSED GAS X1. RIGHT LOWER LAP SITE LEAKING SERIOUS FLUID. REDRESSED WOUND. LEAKING HAS STOPPED. PT HAS DENIED PAIN. SHE DOES STATE TAHT HER ABD IS DISTENDED. NOT UNCOMFORTABLE. SR WITH BBB. VSS. SHE IS NEEDING OXYGEN 2L N/C. SAT 87% ON RA WHEN SLEEPING. 95% ON 2L WHEN ASLEEP. SHE HAS AN OUTPT APPOINTMENT FOR CPAP EVAL R/T SLEEP APNEA. SHE DID AGREE TO TRYING CPAP HERE TONIGHT. CONTINIOUS PULSE OX AT BEDSIDE. CONTINUE POC.
--- NOTE | 2022-05-02 05:08 | NUR ---
PATIENT AWAKE, ALERT AND APPEARS MORE FORGETFUL OVERNIGHT THAN NIGHT PREVIOUS. LLQ PUNCTURE SITES REMAIN CLEAN, DRY AND INTACT.. PATIENT TOOK TYLENOL WITH GOOD RELIEF AROUND MIDNIGHT. LIS IS VERY FIDGETY AND REMAINED AWAKE ALL NIGHT. SHE AGREED TO TRY CPAP, BUT IS SO SMALL, SHE COULD NOT KEEP IT ON THE HEAD GEAR WAS MUCH TOO BIG. IF FOR ANY REASON SHE REMAINS HERE TONIGHT, SHE COULD BENEFIT FROM AN HS DOSE OF BENEDRYL OR MELATONIN. SHE AMBULATED UP AND DOWN THE HALLS SEVERAL TIMES OVER THE COARSE OF THE [facility]
--- NOTE | 2022-05-02 08:00 | NUR ---
RN NOTE DR ELIZONDO NOTIFIED OF BLOOD GLUCOSE OF 357 THIS AM. DIET CHANGED TO ADA DIET AND ORDER PUT IN [employer] FOR 10 GLARGINE SC QHS STARTING TONIGHT. READ BACK DONE.
--- NOTE | 2022-05-02 09:48 | NUR ---
RN NOTE CALL FROM TELEMETRY THAT QTC 0.50. ALSO PT C/O MULTIPLE EPISODES OF DIARRHEA STOOLS. DR ELIZONDO CALLED AND NOTIFIED, ANTIEMETICS DISCONTINUED ON JUN PER T.O.
--- NOTE | 2022-05-02 15:43 | NUR ---
RN NOTE SEEN BY DR JOHN, DRESSINGS REMOVED AND STERI STRIPS OPEN TO AIR. DR JOHN SAID THAT MS BETANCOURT CAN BE DISCHARGED HOME. DR ELIZONDO INFORMED. MS BETANCOURT HAS SOME ABDOMINAL PAIN 4/10 AFTER DRESSINGS REMOVED, GIVEN TYLENOL. SHE HAS BEEN MOBILE, UP TO THE BATHROOM INDEPENDENTLY. COCKTAIL LOUNGE MANAGER SAID [facility] HAS BEEN SET UP AND WILL CALL HER.
[2022-05-02 15:50] LABS: Bun/Creatinine Ratio 37.3 (12.0-20.0); Calcium, Blood 9.2 mg/dL (8.5-10.1); Creatinine, Blood 0.91 mg/dL (0.40-1.00); Potassium, Blood 3.4 mmol/L (3.5-5.5)
[2022-05-02] MEDS ORDERED: LOSA25 PO (16:31)
[2022-05-02] MEDS ORDERED: FURO20 PO (16:31)
--- NOTE | 2022-05-02 17:07 | NUR ---
RN NOTE MS BETANCOURT WAS DISCHARGED HOME AT 1655HRS WITH HER FRIEND WHO IS DRIVING HER HOME. PT AND FRIEND VERBALISED UNDERSTANDING OF WRITTEN AND VERBAL DISCHARGE INSTRUCTIONS. [employer] DEAN PULLED PIV. WINCH STRIPPER REMOVED. DISCHARGED FROM MEDICAL UNIT VIA WHEELCHAIR.
== END 2022-05-02 16:58 | disposition home or self-care (01) ==
LOC: ER 20:43 → MEDS 20:44 → SURS 20:44 → MEDS 04-29 12:24
PROVIDERS: Emergency Medicine; Family Medicine; Internal Medicine; Student in an Organized Health Care Education/Training Program; Surgery; ADMIT Family Medicine
PROC: BF12YZZ Fluoroscopy of Gallbladder using Other Contrast (ICD-10-PCS; principal; 2022-05-01 11:30)
PROC: 0FT44ZZ Resection of Gallbladder, Percutaneous Endoscopic Approach (ICD-10-PCS; principal; 2022-05-01 11:30)
DX: K80.12 Calculus of gallbladder with acute and chronic cholecystitis without obstruction (principal); R74.01 Elevation of levels of liver transaminase levels; I11.0 Hypertensive heart disease with heart failure; I50.23 Acute on chronic systolic (congestive) heart failure; E11.9 Type 2 diabetes mellitus without complications; E87.6 Hypokalemia; G47.33 Obstructive sleep apnea (adult) (pediatric); R94.31 Abnormal electrocardiogram [ECG] [EKG]; Z87.891 Personal history of nicotine dependence; Z99.89 Dependence on other enabling machines and devices; Z88.5 Allergy status to narcotic agent; Z88.1 Allergy status to other antibiotic agents; Z79.4 Long term (current) use of insulin; Z79.899 Other long term (current) drug therapy; Z20.822 Contact with and (suspected) exposure to COVID-19
CPT/HCPCS: 0241U; 36415; 51701; 74300; 76705; 80048; 80053; 81001; 82247; 82248; 82947; 83036; 83690; 83735; 83880; 85025; 88304; 94660; 94760; 94762; 96365-59; 96366; 96375; 96375-59; 96376; 99285-25; A9270; C1729; C1894; G0378; J0694; J1100; J1200; J1815; J1940; J2370; J2405; J2550; J2704; J2765; J2795; J3010; J3480; J7030; J7050; J7120

== ENCOUNTER → 2022-07-04 | Outpatient (CLI) | payer OTHER ==
[~2022-07-04] MED LIST changes: +CARV3.125 PO; +FURO20 PO; +LIDO700A20 TOP; +LOSA25 PO; +PREG75 PO; +TRAZ50 PO
[2022-07-04 12:53] LABS: BASOPHILS ABSOLUTE AUTO 0.08 K/mm3 (0.00-0.23); BASOPHILS PERCENT AUTO 2 % (0-2); EOSINOPHILS ABSOLUTE AUTO 0.13 K/mm3 (0.00-0.68); EOSINOPHILS PERCENT AUTO 2 % (0-6); Hematocrit 41.9 % (33.0-51.0); Hemoglobin 14.3 g/dL (11.5-16.0); IMMATURE GRAN ABSOLUTE AUTO 0.05 K/mm3 (0.00-0.10); IMMATURE GRAN PERCENT AUTO 1 % (0-1); LYMPHOCYTES ABSOLUTE AUTO 1.04 K/mm3 (0.84-5.20); LYMPHOCYTES PERCENT AUTO 19 % (21-46); MONOCYTES ABSOLUTE AUTO 0.36 K/mm3 (0.16-1.47); MONOCYTES PERCENT AUTO 7 % (4-13); Mean Corpuscular HGB 33.2 pg (26.0-34.0); Mean Corpuscular HGB Conc 34.1 g/dL (31.5-36.5); Mean Corpuscular Volume 97 fL (80-100); Mean Platelet Volume 10.5 fL (9.1-12.4); NEUTROPHILS ABSOLUTE AUTO 3.71 K/mm3 (1.96-9.15); NEUTROPHILS PERCENT AUTO 69 % (41-73); Platelet Count 230 K/mm3 (150-400); RDW Coefficient Variation 13.2 % (11.7-14.2); RDW Standard Deviation 47.3 fL (35.1-46.3); Red Blood Cell Count 4.31 M/mm3 (3.80-5.20); White Blood Cell Count 5.37 K/mm3 (4.00-11.30)
[2022-07-04 13:01] LABS: Albumin, Blood 3.5 g/dL (3.4-5.0); Albumin/Globulin Ratio 1.2 (0.8-1.8); Bilirubin, Total 1.3 mg/dL (0.1-1.0); Bun/Creatinine Ratio 18.2 (12.0-20.0); Calcium, Blood 9.3 mg/dL (8.5-10.1); Creatinine, Blood 0.99 mg/dL (0.40-1.00); Globulin, Blood 2.9 g/dL (2.2-4.0); Potassium, Blood 3.4 mmol/L (3.5-5.5); Total Protein, Blood 6.4 g/dL (6.4-8.2)
== END | disposition home or self-care (01) ==
LOC: LAB 12:46 → LAB SHORT 12:46
PROVIDERS: Chiropractor
DX: R19.00 Intra-abdominal and pelvic swelling, mass and lump, unspecified site (principal); R60.0 Localized edema
CPT/HCPCS: 80053; 83690; 83880; 84484; 85025

== ENCOUNTER 2023-11-06 17:43 | Emergency (ER) | payer OTHER ==
[~2023-11-06] VITALS: Ht 157.5 cm; Wt 70.8 kg
[2023-11-06 18:34] LABS: BASOPHILS ABSOLUTE AUTO 0.07 K/mm3 (0.00-0.23); BASOPHILS PERCENT AUTO 1 % (0-2); EOSINOPHILS ABSOLUTE AUTO 0.23 K/mm3 (0.00-0.68); EOSINOPHILS PERCENT AUTO 4 % (0-6); Hematocrit 42.1 % (33.0-51.0); Hemoglobin 13.8 g/dL (11.5-16.0); IMMATURE GRAN ABSOLUTE AUTO 0.01 K/mm3 (0.00-0.10); IMMATURE GRAN PERCENT AUTO 0 % (0-1); LYMPHOCYTES PERCENT AUTO 18 % (21-46); MONOCYTES ABSOLUTE AUTO 0.41 K/mm3 (0.16-1.47); MONOCYTES PERCENT AUTO 7 % (4-13); Mean Corpuscular HGB 32.2 pg (26.0-34.0); Mean Corpuscular HGB Conc 32.8 g/dL (31.5-36.5); Mean Corpuscular Volume 98 fL (80-100); Mean Platelet Volume 11.2 fL (9.1-12.4); NEUTROPHILS ABSOLUTE AUTO 4.43 K/mm3 (1.96-9.15); NEUTROPHILS PERCENT AUTO 71 % (41-73); Platelet Count 215 K/mm3 (150-400); RDW Coefficient Variation 13.1 % (11.7-14.2); RDW Standard Deviation 46.9 fL (35.1-46.3); Red Blood Cell Count 4.28 M/mm3 (3.80-5.20); White Blood Cell Count 6.25 K/mm3 (4.00-11.30)
[2023-11-06 18:53] LABS: Albumin, Blood 3.2 g/dL (3.4-5.0); Albumin/Globulin Ratio 1.3 (0.8-1.8); Bilirubin, Total 0.5 mg/dL (0.1-1.0); Bun/Creatinine Ratio 26.8 (12.0-20.0); Calcium, Blood 8.7 mg/dL (8.5-10.1); Creatinine, Blood 0.86 mg/dL (0.40-1.00); Globulin, Blood 2.4 g/dL (2.2-4.0); Potassium, Blood 4.4 mmol/L (3.5-5.5); Total Protein, Blood 5.6 g/dL (6.4-8.2)
[2023-11-06] MEDS ORDERED: Furosemide 10 MG / ML 2ML Vial IV ONE (22:35)
[2023-11-06 22:54] VITALS: BP 141/92
== END 2023-11-06 23:00 | disposition home or self-care (01) ==
LOC: ER 17:43
PROVIDERS: Student in an Organized Health Care Education/Training Program
DX: I11.0 Hypertensive heart disease with heart failure (principal); I50.20 Unspecified systolic (congestive) heart failure; E11.65 Type 2 diabetes mellitus with hyperglycemia; G47.30 Sleep apnea, unspecified; Z88.5 Allergy status to narcotic agent; Z88.1 Allergy status to other antibiotic agents; Z79.899 Other long term (current) drug therapy; Z87.891 Personal history of nicotine dependence
CPT/HCPCS: 71046; 80053; 83880; 85025; 96374; 99285-25; J1940

== ENCOUNTER 2024-11-03 10:49 | Inpatient (IN) | payer OTHER ==
[2024-11-03] VITALS (10 sets, daily range): BP systolic 119–147; BP diastolic 84–108
[~2024-11-03] VITALS: Ht 157.5 cm; Wt 54.3 kg
[2024-11-03 11:29] LABS: BASOPHILS ABSOLUTE AUTO 0.04 K/mm3 (0.00-0.23); BASOPHILS PERCENT AUTO 0 % (0-2); EOSINOPHILS ABSOLUTE AUTO 0.01 K/mm3 (0.00-0.68); EOSINOPHILS PERCENT AUTO 0 % (0-6); Hematocrit 46.6 % (33.0-51.0); Hemoglobin 15.4 g/dL (11.5-16.0); IMMATURE GRAN ABSOLUTE AUTO 0.05 K/mm3 (0.00-0.10); IMMATURE GRAN PERCENT AUTO 1 % (0-1); LYMPHOCYTES ABSOLUTE AUTO 0.57 K/mm3 (0.84-5.20); LYMPHOCYTES PERCENT AUTO 5 % (21-46); MONOCYTES ABSOLUTE AUTO 0.27 K/mm3 (0.16-1.47); MONOCYTES PERCENT AUTO 3 % (4-13); Mean Corpuscular HGB Conc 33.0 g/dL (31.5-36.5); Mean Corpuscular Volume 100 fL (80-100); NEUTROPHILS ABSOLUTE AUTO 9.72 K/mm3 (1.96-9.15); NEUTROPHILS PERCENT AUTO 91 % (41-73); NRBC ABSOLUTE 0.00 K/mm3 (0.00-0.02); NRBC Auto 0.0 /100 WBC (0.0-0.2); Platelet Count 268 K/mm3 (150-400); RDW Coefficient Variation 13.8 % (11.7-14.2); RDW Standard Deviation 50.4 fL (35.1-46.3)
[2024-11-03 11:48] LABS: Alanine Aminotransfer (ALT/SGP 15.0 U/L (12-78); Albumin, Blood 3.8 g/dL (3.4-5.0); Albumin/Globulin Ratio 1.3 (0.8-1.8); Anion Gap 10.0 mmol/L (3-11); Aspartate Aminotrans (AST/SGOT 22.0 U/L (12-37); Bilirubin, Total 0.9 mg/dL (0.1-1.0); Blood Urea Nitrogen 22.0 mg/dL (8-24); CO2, Blood 22.0 mmol/L (21-32); Calcium, Blood 9.4 mg/dL (8.5-10.1); Chloride, Blood 108.0 mmol/L (98-108); Creatinine, Blood 1.04 mg/dL (0.40-1.00); Globulin, Blood 3.0 g/dL (2.2-4.0); Glucose, Blood 294.0 mg/dL (70-99); Potassium, Blood 3.8 mmol/L (3.5-5.5); Sodium, Blood 136.0 mmol/L (136-145); Total Protein, Blood 6.8 g/dL (6.4-8.2)
[2024-11-03 12:14] LABS: Source, Urine Fem Cath
[2024-11-03 12:33] LABS: Color, Urine Amber (P-Yellow); Glucose Qualitative, Urine 2+ (Neg); Ketones, Urine 1+ (Neg); Leukocyte Esterase, Urine 1+ (Neg); Protein, Urine 3+ (Neg); Specific Gravity, Urine 1.030 (1.003-1.022); Urobilinogen, Urine 1+ (Normal)
[2024-11-03 12:53] LABS: U Amphetamine Screen Not Detected; U Barbituate Screen Not Detected; U Benzodiazapine Screen Not Detected; U Buprenorphine Screen Not Detected; U Cannabinoids Screen Not Detected; U Cocaine Screen Not Detected; U Methadone Screen Not Detected; U Methamphetamine Screen Not Detected; U Opiates Screen Not Detected; U Oxycodone Screen Not Detected; U Phencyclidine Screen Not Detected
[2024-11-03 13:09] LABS: Bilirubin, Urine 1+ (Neg)
[2024-11-03 13:10] LABS: Red Blood Cells, Urine TNTC /hpf (0-2)
[2024-11-03] MEDS ORDERED: Ondansetron HCl 2 MG / ML 2ML Vial IV PRN (15:20)
[2024-11-03] MEDS ORDERED: D5W-1/2NS KCl 20mEq 1,000 ML IV SCH ×2 (15:20→16:05)
[2024-11-03] MEDS ORDERED: Metoprolol Tartrate 1 MG/ML 5 ML VIAL IV STA (16:15)
[2024-11-03] MEDS ORDERED: MetroNIDAZOLE 500MG/NS 100 ml 100 ML IV SCH (16:24)
[2024-11-03] MEDS ORDERED: FentaNYL Citrate 50 MCG/ML 2 ML Injection IV PRN (16:50)
[2024-11-03 16:57] LABS: Magnesium, Blood 1.7 mg/dL (1.6-2.4)
[2024-11-03 16:58] LABS: Alanine Aminotransfer (ALT/SGP 15.0 U/L (12-78); Albumin, Blood 3.5 g/dL (3.4-5.0); Albumin/Globulin Ratio 1.3 (0.8-1.8); Anion Gap 12.0 mmol/L (3-11); Aspartate Aminotrans (AST/SGOT 31.0 U/L (12-37); Bilirubin, Total 1.0 mg/dL (0.1-1.0); Blood Urea Nitrogen 23.0 mg/dL (8-24); CO2, Blood 22.0 mmol/L (21-32); Calcium, Blood 9.2 mg/dL (8.5-10.1); Chloride, Blood 105.0 mmol/L (98-108); Creatinine, Blood 0.91 mg/dL (0.40-1.00); Globulin, Blood 2.7 g/dL (2.2-4.0); Glucose, Blood 325.0 mg/dL (70-99); Phosphorus, Blood 3.5 mg/dL (2.5-4.9); Potassium, Blood 4.0 mmol/L (3.5-5.5); Sodium, Blood 135.0 mmol/L (136-145); Total Protein, Blood 6.2 g/dL (6.4-8.2)
[2024-11-03] MEDS ORDERED: CefTRIAXone Sodium 1,000 MG in NS 100 ML IV SCH (17:00)
[2024-11-03 17:06] LABS: C-REACTIVE PROTEIN, EXT RANGE 0.648 mg/dL (0.000-0.300)
[2024-11-03 17:16] LABS: Thyroid Stimulating Hormone 1.73 uIU/mL (0.360-4.800)
--- NOTE | 2024-11-03 18:50 | NUR ---
ASSUMTION OF CARE PT ARRIVED TO ROOM FROM ED AT 1659. NEURO: ALERT AND ORIENTED X4, REPORTS PAINFUL ABD, AFEBRILE. CARDIAC: NSR W/ LEFT BBB, MURMUR PRESENT, MAPS >65, SBP 140'S, CAP REFILL <3 SEC, ABD EDEMA +1. RESPIRATORY: FIO2 >90% ON RA, 3L NC PLACED FOR FREQUENT DESATTING W/ SLEEP. BREATH SOUNDS DIM W/ CRACKLES. SHALLOW BREATHS. GI: BOWEL TONES HYPOACTIVE, ABD TENDER TO PALPATION. : CORONA CATHETER PLACED FOR ACCURATE I/O'S. SKIN INTACT W/O BREAKDOWN, SCATTERED OLD BRUISING PRESENT ON LUE. ACCESS: RAC PIV, LW PIV
--- NOTE | 2024-11-03 19:54 | NUR ---
MED REC DONE. PT STATED SHE STOPPED TAKING ALL MEDICATIONS IN JULY FOR A CLEANSE AND NEVER RESTARTED ANY. SHE SAID SHE DOES NOT KNOW IF SHE INTENDS TO RESTART ANY MEDICATIONS AT HOME.
[2024-11-03] MEDS ORDERED: Insulin Human Lispro 100 Units/ML 3ML Syringe SC SCH (21:00)
[2024-11-03 21:41] LABS: Prothrombin Time Results 13.7 Sec (9.7-11.5)
[2024-11-03 21:46] LABS: Albumin, Blood 3.5 g/dL (3.4-5.0); Anion Gap 13.0 mmol/L (3-11); Blood Urea Nitrogen 23.0 mg/dL (8-24); CO2, Blood 23.0 mmol/L (21-32); Calcium, Blood 8.9 mg/dL (8.5-10.1); Chloride, Blood 106.0 mmol/L (98-108); Creatinine, Blood 1.01 mg/dL (0.40-1.00); Glucose, Blood 302.0 mg/dL (70-99); Lactate Dehydrogenase (Ld),Bld 269.0 U/L (100-240); Potassium, Blood 4.1 mmol/L (3.5-5.5); Sodium, Blood 138.0 mmol/L (136-145)
[2024-11-04] VITALS (42 sets, daily range): BP systolic 111–145; BP diastolic 66–116
[2024-11-04 03:42] LABS: BASOPHILS ABSOLUTE AUTO 0.01 K/mm3 (0.00-0.23); BASOPHILS PERCENT AUTO 0 % (0-2); EOSINOPHILS ABSOLUTE AUTO 0.00 K/mm3 (0.00-0.68); EOSINOPHILS PERCENT AUTO 0 % (0-6); Hematocrit 39.0 % (33.0-51.0); Hemoglobin 13.0 g/dL (11.5-16.0); IMMATURE GRAN ABSOLUTE AUTO 0.03 K/mm3 (0.00-0.10); IMMATURE GRAN PERCENT AUTO 0 % (0-1); LYMPHOCYTES ABSOLUTE AUTO 0.61 K/mm3 (0.84-5.20); LYMPHOCYTES PERCENT AUTO 6 % (21-46); MONOCYTES ABSOLUTE AUTO 0.57 K/mm3 (0.16-1.47); MONOCYTES PERCENT AUTO 6 % (4-13); Mean Corpuscular HGB Conc 33.3 g/dL (31.5-36.5); Mean Corpuscular Volume 99 fL (80-100); NEUTROPHILS ABSOLUTE AUTO 8.54 K/mm3 (1.96-9.15); NEUTROPHILS PERCENT AUTO 88 % (41-73); NRBC ABSOLUTE 0.00 K/mm3 (0.00-0.02); NRBC Auto 0.0 /100 WBC (0.0-0.2); Platelet Count 195 K/mm3 (150-400); RDW Coefficient Variation 13.8 % (11.7-14.2); RDW Standard Deviation 50.4 fL (35.1-46.3)
[2024-11-04] MEDS ORDERED: Metoprolol Tartrate 1 MG/ML 5 ML VIAL IV PRN (04:00)
[2024-11-04 04:13] LABS: Alanine Aminotransfer (ALT/SGP 19.0 U/L (12-78); Albumin, Blood 3.2 g/dL (3.4-5.0); Albumin/Globulin Ratio 1.1 (0.8-1.8); Anion Gap 10.0 mmol/L (3-11); Aspartate Aminotrans (AST/SGOT 120.0 U/L (12-37); Bilirubin, Total 0.6 mg/dL (0.1-1.0); Blood Urea Nitrogen 24.0 mg/dL (8-24); CO2, Blood 25.0 mmol/L (21-32); Calcium, Blood 8.7 mg/dL (8.5-10.1); Chloride, Blood 109.0 mmol/L (98-108); Creatinine, Blood 0.97 mg/dL (0.40-1.00); Globulin, Blood 2.8 g/dL (2.2-4.0); Glucose, Blood 227.0 mg/dL (70-99); Potassium, Blood 3.7 mmol/L (3.5-5.5); Sodium, Blood 140.0 mmol/L (136-145); Total Protein, Blood 6.0 g/dL (6.4-8.2)
--- NOTE | 2024-11-04 06:10 | NUR ---
SHIFT SUMMARY: NO CHANGES OVERNIGHT. PT SLEPT THROUGH THE NIGHT. BLOOD PRESSURE REMAINED WITHIN RANGE PER [place] WITHOUT NITRO GTT. URINE OUTPUT ADEQUATE, CORONA PATENT AND DRAINING TO GRAVITY. HR HAS BEEN 70S-80S. SHE HAD 3 RUNS OF VTACH DURING THE NIGHT BUT HAD NO COMPLAINT OF SYMPTOMS DURING THEM. SHE DENIES PAIN OR NAUSEA AT THIS TIME.
[2024-11-04] MEDS ORDERED: Enoxaparin 40 MG/0.4 ML SYR SC SCH (09:00)
[2024-11-04] MEDS ORDERED: Albumin (Human) 25gm/100ml 100 ML IV ONE (10:05)
[2024-11-04 10:31] LABS: Automated BF WBC Count 0.122 K/mm3 (0-999)
[2024-11-04 10:41] LABS: Color, Body Fluid L Yellow (None-Yellow)
--- NOTE | 2024-11-04 10:56 | NUR ---
ASSUMPTION OF CARE ASSUMED CARE OF PATIENT AT APPROXIMATELY 0700. PT RESTING IN BED, SLEEPING BUT AROUSABLE. PT ANSWERS QUESTIONS APPROPRIATLEY, FOLLOWS DIRECTION WHEN PROMPTED AND IS ABLE TO MAKE HER NEEDS KNOWN. PT MOVES EXTREMITIES EQUALLY BILATERALLY, ASSISTS WITH REPOSITIONING. HR 70'S SINUS, MAP >65. PT DENIES CP/PRESSURE. PT ON 3LPM VIA NC AT START OF SHIFT, SWITCHED TO RA, OXYGEN SATURATION >92%. ABDOMEN SOFT, DISTENDED, PARACENTESIS PERFORMED, 4L REMOVED. BOWEL TONES HYPOACTIVE. CORONA IN PLACE PATENT DRAINING YELLOW URINE TO GRAVITY. PIV IN PLACE TO RAC AND LEFT WRIST. BED IN LOWEST POSITION, CALL LIGHT WITHIN REACH, CARE CONTINUES.
[2024-11-04 11:10] LABS: Albumin, Body Fluid 2.4 g/dL
[2024-11-04 11:15] LABS: Glucose, Body Fluid 221 mg/dL
[2024-11-04 11:19] LABS: Triglycerides, Body Fluid 39 mg/dL
[2024-11-04 11:21] LABS: Lactate Dehydrogenase, Body Fl 93 U/L
[2024-11-04] MEDS ORDERED: Verapamil HCL 2.5 MG/ML 2ML Injection ONE (11:30)
[2024-11-04] MEDS ORDERED: Heparin Sodium 1000 Units/ML 10ML MDV ONE (11:30)
[2024-11-04] MEDS ORDERED: NS 250 ML IV ONE (11:30)
[2024-11-04] MEDS ORDERED: NS 1,000 ML IV ONE ×2 (11:30→11:33)
[2024-11-04 11:34] LABS: RBC Count, Body Fluid 200 /mm3 (0-0)
[2024-11-04 11:45] LABS: Lymphocytes, Fluid 12.0 % (0.0-18.0); Monocytes/Mononuclear, Fluid 53.0 % (0.0-50.0); Neutrophils, Fluid 27.0 % (0.0-25.0); Total Cell Count, Body Fluid 100
--- NOTE | 2024-11-04 11:48 | NUR ---
PT TRANSFERRED TO HOSPICE RN AT 1144.
[2024-11-04] MEDS ORDERED: FentaNYL Citrate 50 MCG/ML 2 ML Injection ONE (12:13)
--- NOTE | 2024-11-04 13:13 | NUR ---
PT UPDATE PT BACK TO ICU AT APPROXIMATELY 108. PT ALERT AND ORIENTED. HR 60'S, PT DENIES CP/PRESSURE. MAP >65. PT ON RA, OXYGEN SATURATION >95%. PTS FRIEND AT THE BEDSDIE PER PT REQUEST. BED IN LOWEST POSITON, CALL LIGHT WITHIN REACH, CARE CONTINUES.
--- NOTE | 2024-11-04 14:11 | NUR ---
Pt. is awake in bed when she welcomes my visit. Friend is at bedside. facilitated a short life review, but Pt. displayed evidence of wanteing to continue to rest. Pt. and friend verbalized gratitude for the spiritual care visit.
[2024-11-04] MEDS ORDERED: Polyethylene Glycol 3350 17 gm PO PRN (16:30)
--- NOTE | 2024-11-04 17:18 | NUR ---
SHIFT SUMMARY PT CONTINUES TO REST IN BED, SLEEPING BUT AROUSABLE. PT ORIENTED, ANSWERS QUESTIONS APPROPRIATELY, PT FOLLOWS DIRECTION WHEN PROMPTED AND IS ABLE TO MAKE HER NEEDS KNOWN. PT MOVES EXTREMITIES EQUALLY BILATERALLY. HR 60-80'S SINUS WITH BBB. PT DENIES CP/PRESSURE. TR BAND IN PLACE TO RIGHT RADIAL WITH MINIMAL OOZING NOTED, NO HEMATOMA FORMATION NOTED. ARM BOARD IN PLACE. PT ON RA, OXYGEN SATURATION >95%. ABDOMEN SOFT, DISTENDED. PT COMPLAINING OF DISCOMFORT IN HER ABDOMEN, DECLINES PAIN MEDICATION WHEN OFFERED. PT ALSO HAS EMESIS BAG AND IS SPITTING UP SMALL AMOUNT OF SECRETIONS, PT DECLINES NAUSEA MEDICATION WHEN OFFERED. CORONA IN PLACE PATENT DRAINING YELLOW URINE TO GRAVITY. PIV IN PLACE TO RAC AND LEFT WRIST SL. BED IN LOWEST POSITION, CALL LIGHT WITHIN REACH, CARE CONTINUES.
[2024-11-04] MEDS ORDERED: NS 500 ML IV ONE (18:35)
--- NOTE | 2024-11-04 18:40 | NUR ---
PT UPDATE PT CALLING OUT "HELP" THIS RN OT BEDSIDE. PT STATING SHE DOESNT FEEL WELL, AND THAT SHE NEEDS A DOCTOR. WHEN ASKED WHAT SYMPTOMS THE PATIENT IS HAVING, THE PT IS UNABLE TO GIVE DETAILED INFORMATION. PT STATES SHE IS HAVING DISCOMFORT IN HER CHEST, WHEN ASKED TO ELABORATE PT DENIES PAIN. PT STTAES SHE FEELS WEAK AND THAT SHE FEELS LIKE SHE IS GOING TO . EKG PERFORMED, DR. JENKINS CALLED AND TO BEDSIDE TO ASSESS THE PT. ORDERS RECEIVED. CARE CONTINUES.
[2024-11-04 19:18] LABS: Hematocrit 43.8 % (33.0-51.0); Hemoglobin 14.9 g/dL (11.5-16.0)
[2024-11-04 19:45] LABS: Albumin, Blood 3.6 g/dL (3.4-5.0); Anion Gap 10 mmol/L (3-11); Blood Urea Nitrogen 22 mg/dL (8-24); CO2, Blood 25 mmol/L (21-32); Calcium, Blood 9.1 mg/dL (8.5-10.1); Chloride, Blood 107 mmol/L (98-108); Creatinine, Blood 0.93 mg/dL (0.40-1.00); Glucose, Blood 195 mg/dL (70-99); Phosphorus, Blood 5.7 mg/dL (2.5-4.9); Potassium, Blood 3.3 mmol/L (3.5-5.5); Sodium, Blood 139 mmol/L (136-145)
[2024-11-05] VITALS (8 sets, daily range): BP systolic 134–146; BP diastolic 85–101
--- NOTE | 2024-11-05 02:43 | NUR ---
NO SIGNIFICANT CHANGES IN PT CONDITION THIS SHIFT. PT STARTED THE SHIFT WITH FEELING A SENSE OF DOOM. PT WAS ELVALUATED BY DR JENKINS. SHE HAS BEEN SLEEPING AND WITHOUT COMPLAINT AFTER GIVEN DOSE OF ATIVAN. REPORT GIVEN TO RAMONA STYLES. PT GOING TO PCU 16 IN BED.
--- NOTE | 2024-11-05 05:37 | NUR ---
SHIFT [place] ASSUMED CARE OF PATIENT AROUND 0300. REPORT RECEIVED FROM INSURANCE SOLICITOR. PATIENT TRANSFERRED TO PCU 16. PATIENT ALERT, ORIENTED x3-4. SOFT SPOKEN BUT ANSWERING QUESTIONS APPROPRIATELY. SINUS RHYTHM, BBB ON TELE. BP STABLE. PATIENT ON RA WITH SPO2 >90%. CORONA IN PLACE DRAINING YELLOW URINE TO GRAVITY. NO OTHER CHANGES THIS SHIFT, WILL REPORT TO DAY SHIFT RN.
--- NOTE | 2024-11-05 10:50 | NUR ---
NOTIFIED BY TELE THAT THERE HAVE BEEN SOME RHYTHM CHANGES SINCE THIS MORNING. PT REPORTS FEELING ASYMPTOMATIC OUTSIDE OF FEELING VERY WEAK. EKG PERFORMED, BALA NOTIFIED FOR REVIEW. AFTER REVIEW, DR. MCKENNA INFORMED THERE HAVE BEEN NO SIGNIFICANT CHANGES AND IS NOT CONCERNED. PT OTHERWISE FEELING OKAY OUTSIDE OF WEAK. PT EVALUATION AND TREATMENT ORDERED ON BEHALF OF BALA.
[2024-11-05 12:40] LABS: BASOPHILS ABSOLUTE AUTO 0.02 K/mm3 (0.00-0.23); BASOPHILS PERCENT AUTO 0 % (0-2); EOSINOPHILS ABSOLUTE AUTO 0.00 K/mm3 (0.00-0.68); EOSINOPHILS PERCENT AUTO 0 % (0-6); Hematocrit 45.6 % (33.0-51.0); Hemoglobin 15.7 g/dL (11.5-16.0); IMMATURE GRAN ABSOLUTE AUTO 0.08 K/mm3 (0.00-0.10); IMMATURE GRAN PERCENT AUTO 1 % (0-1); LYMPHOCYTES ABSOLUTE AUTO 0.43 K/mm3 (0.84-5.20); LYMPHOCYTES PERCENT AUTO 3 % (21-46); MONOCYTES ABSOLUTE AUTO 0.96 K/mm3 (0.16-1.47); MONOCYTES PERCENT AUTO 7 % (4-13); Mean Corpuscular HGB Conc 34.4 g/dL (31.5-36.5); Mean Corpuscular Volume 97 fL (80-100); NEUTROPHILS ABSOLUTE AUTO 13.24 K/mm3 (1.96-9.15); NEUTROPHILS PERCENT AUTO 90 % (41-73); NRBC ABSOLUTE 0.00 K/mm3 (0.00-0.02); NRBC Auto 0.0 /100 WBC (0.0-0.2); Platelet Count 213 K/mm3 (150-400); RDW Coefficient Variation 14.0 % (11.7-14.2); RDW Standard Deviation 50.1 fL (35.1-46.3)
[2024-11-05 13:03] LABS: Alanine Aminotransfer (ALT/SGP 23.0 U/L (12-78); Albumin, Blood 3.5 g/dL (3.4-5.0); Albumin/Globulin Ratio 1.3 (0.8-1.8); Anion Gap 10.0 mmol/L (3-11); Aspartate Aminotrans (AST/SGOT 83.0 U/L (12-37); Bilirubin, Total 1.3 mg/dL (0.1-1.0); Blood Urea Nitrogen 22.0 mg/dL (8-24); CO2, Blood 28.0 mmol/L (21-32); Calcium, Blood 9.2 mg/dL (8.5-10.1); Chloride, Blood 105.0 mmol/L (98-108); Creatinine, Blood 0.85 mg/dL (0.40-1.00); Globulin, Blood 2.7 g/dL (2.2-4.0); Glucose, Blood 217.0 mg/dL (70-99); Potassium, Blood 4.1 mmol/L (3.5-5.5); Sodium, Blood 139.0 mmol/L (136-145); Total Protein, Blood 6.2 g/dL (6.4-8.2)
--- NOTE | 2024-11-05 17:04 | NUR ---
SHIFT SUMMARY. SHIFT HAS BEEN UNREMARKABLE. PT AOX3, COOPERATIVE, ABLE TO MAKE NEEDS KNOWN. HAS DENIED PAIN THROUGHOUT SHIFT. MINIMAL PO INTAKE THROUGHOUT SHIFT DESPITE ENCOURAGMENT. PT EVALUATION THIS MORNING, STATED PT IS 1PA TRANSFER. PT HAD SOME TELE CHANGES THIS MORNING, SEE PREVIOUS NOTE FOR DETAILS. SINCE THAT TIME HAS CONTINUED TO RUN SINUS WITH BBB ON TELE. VITALS OTHERWISE STABLE. PT HAS VERY FLAT AFFECT AND HAS HAD LITTLE MOTIVATION TO MOVE THROUGHOUT SHIFT DESPITE ENCOURAGEMENT AT TIMES. REPORTS JUST FEELING VERY TIRED. HAS BEEN SOMEWHAT SOMNOLENT THROUGHOUT SHIFT BUT IS EASILY WOKEN AND IS ALERT WHEN AWAKE. BED LOCKED IN LOWEST POSITION. CALL LIGHT LEFT WITHIN REACH.
--- NOTE | 2024-11-05 19:27 | NUR ---
ASSUMPTION OF CARE ASSUMED PT'S CARE AT 1900,BEDSIDE REPORT COMPLETED.PT RESTING IN BED,DOZING OFF.PLAN OF CARE REVIEWED.PT DENIES PAIN,DENIES NEEDS AT THIS TIME.CALL LIGHT AND PT'S ITEMS WITHIN REACH.MONITORING ONGOING PER CAREPLAN.
[2024-11-06] VITALS (9 sets, daily range): BP systolic 10–131; BP diastolic 59–86
--- NOTE | 2024-11-06 06:35 | NUR ---
PT MONITORED DURING THE SHIFT,NO ACUTE EVENTS NOTED.PT REPORTS THIS WAS THE BEST NIGHT SHE HAS EVER HAD SINCE ADMISSION.PT USED THE CALL LIGHT APPROPRIATELY TO VOICE NEEDS.PT AWAKE AT THIS TIME SITTING AT THE EDGE OF THE BED ,DENIES PAIN,DENIES NEEDS.CALL LIGHT AND PT'S ITEMS WITHIN REACH.MONITORING ONGOING PER CAREPLAN.
[2024-11-06 12:28] LABS: BASOPHILS ABSOLUTE AUTO 0.03 K/mm3 (0.00-0.23); BASOPHILS PERCENT AUTO 0 % (0-2); EOSINOPHILS ABSOLUTE AUTO 0.11 K/mm3 (0.00-0.68); EOSINOPHILS PERCENT AUTO 1 % (0-6); Hematocrit 43.1 % (33.0-51.0); Hemoglobin 14.5 g/dL (11.5-16.0); IMMATURE GRAN ABSOLUTE AUTO 0.09 K/mm3 (0.00-0.10); IMMATURE GRAN PERCENT AUTO 1 % (0-1); LYMPHOCYTES ABSOLUTE AUTO 0.53 K/mm3 (0.84-5.20); LYMPHOCYTES PERCENT AUTO 5 % (21-46); MONOCYTES ABSOLUTE AUTO 0.72 K/mm3 (0.16-1.47); MONOCYTES PERCENT AUTO 7 % (4-13); Mean Corpuscular HGB Conc 33.6 g/dL (31.5-36.5); Mean Corpuscular Volume 96 fL (80-100); NEUTROPHILS ABSOLUTE AUTO 9.02 K/mm3 (1.96-9.15); NEUTROPHILS PERCENT AUTO 86 % (41-73); NRBC ABSOLUTE 0.00 K/mm3 (0.00-0.02); NRBC Auto 0.0 /100 WBC (0.0-0.2); Platelet Count 212 K/mm3 (150-400); RDW Coefficient Variation 13.5 % (11.7-14.2); RDW Standard Deviation 47.9 fL (35.1-46.3)
[2024-11-06 12:59] LABS: Alanine Aminotransfer (ALT/SGP 20.0 U/L (12-78); Albumin, Blood 3.2 g/dL (3.4-5.0); Albumin/Globulin Ratio 1.2 (0.8-1.8); Anion Gap 7.0 mmol/L (3-11); Aspartate Aminotrans (AST/SGOT 47.0 U/L (12-37); Bilirubin, Total 1.3 mg/dL (0.1-1.0); Blood Urea Nitrogen 22.0 mg/dL (8-24); CO2, Blood 33.0 mmol/L (21-32); Calcium, Blood 9.0 mg/dL (8.5-10.1); Chloride, Blood 101.0 mmol/L (98-108); Creatinine, Blood 0.83 mg/dL (0.40-1.00); Globulin, Blood 2.7 g/dL (2.2-4.0); Glucose, Blood 163.0 mg/dL (70-99); Potassium, Blood 3.4 mmol/L (3.5-5.5); Sodium, Blood 138.0 mmol/L (136-145); Total Protein, Blood 5.9 g/dL (6.4-8.2)
[2024-11-06] MEDS ORDERED: Polyethylene Glycol 3350 17 gm PO PRN (14:50)
--- NOTE | 2024-11-06 16:43 | NUR ---
SHIFT SUMMARY. SHIFT HAS GONE WELL THUS FAR. PT AOX3 BUT IS VERY FORGETFUL, REQUIRING FREQUENT REEDUCATION ON THINGS SUCH MEDICATION, PLAN OF CARE, GOALS OF CARE, ETC. AT TIMES HESITANT TO TAKE MEDICATIONS BUT IS AGREEABLE WITH EDUCATION. STEADY 1PA TRANSFER TO BATHROOM. 24 HOUR URINE COLLECTION STARTD @ 1455. CORONA REMOVED THIS MORNING TO PROMOTE MOVEMENT AND GAINING STRENGTH BACK, PT HAS VOIDED SEVERAL TIMES SINCE THEN. HAS DENIED PAIN THROUGHOUT SHIFT. VITALS HAVE BEEN STABLE. PT REPORTS FEELING MUCH MUCH BETTER THAN PREVIOUS SHIFT WITH THIS RN, LIKEWISE HAS BEEN MORE ALERT/TALKATIVE AND IS MOVING AROUND MUCH BETTER. MED STATUS W/ TELE. BED LOCKED IN LOWEST POSITION. CALL LIGHT LEFT WTIHIN REACH.
--- NOTE | 2024-11-06 19:06 | NUR ---
PALLIATIVE CARE VISIT: REFERRAL RECEIVED FOR POLST/AD COMPLETION. PT REFUSING TO TAKE PRESCRIBED MEDICATIONS. SPOKE TO PRIMARY RN PRIOR TO MEETING. REVIEWED MEDICAL RECORD PRIOR TO VISIT. MET WITH PT IN HER ROOM. PT IS AWAKE, A/O X4, ABLE TO MAKE INFORMED DECISIONS. EDUCATED ON POLST/AD. PT AGREEABLE TO COMPLETING BOTH DOCUMENTS. PT EDUCATED ON CPR VS DNR MEASURES. PT CHOSE TO BE DNR, SHE WOULD WANT SELECTIVE TREATMENT. PT STATED SHE HAS MACULAR DEGENERATION AND CANNOT READ ADVANCE DIRECTIVE TO COMPLETE ON HER OWN. PT AGREEABLE TO ALLOWING THIS RN ASSIST WITH COMPLETING. READ EACH SECTION TO HER AND WROTE HER ANSWERS DOWN. SHE WAS ABLE TO INITIAL AND READ MY [employer] HANDWRITING TO CONFIRM HER CHOICES CORRECT. SHE NAMED HER FRIEND RM HER HEALTHCARE MANAGER ELECTRICAL. CALLED RM TO VERIFY OVER PHONE SHE WAS WILLING TO JOHANNA HER MANAGER ELECTRICAL. 2 WITNESSES FOUND AND PT SIGNED DOCUMENT. MADE COPIES FOR PT AND PLACED ONE ON CHART AND SENT ONE TO MEDICAL RECORDS. AWAITING MD SIGNATURE FOR POLST. DISCUSSED MEDICATION MANAGEMENT AT HOME. PT STATED SHE HAD STOPPED TAKING HER MEDICATIONS FOR A PARASITE CLEANSE AND THAT IS WHY SHE HAD A HEART ATTACK. PT WAS UNABLE TO FINISH HER CLEANSE. PT STATES SHE HAS HAD NO TESTING FOR PARASITES BECAUSE HER PCP REFUSED TO TEST HER SO SHE WENT THROUGH A HOMEOPATHIC PROVIDER INSTEAD. DISCUSSED IMPORTANCE OF MEDICATION ADHERENCE AND TO COMPLETE A CLEANSE UNDER A DOCTORS CARE. PT STATES SHE IS FEELING MUCH BETTER . DENIES PAIN, NAUSEA, CONSTIPATION, SOB AT THIS TIME. SYMPTOMS MANAGED.
[2024-11-07 03:22] VITALS: BP 109/73
[2024-11-07 03:58] LABS: BASOPHILS ABSOLUTE AUTO 0.03 K/mm3 (0.00-0.23); BASOPHILS PERCENT AUTO 0 % (0-2); EOSINOPHILS ABSOLUTE AUTO 0.28 K/mm3 (0.00-0.68); EOSINOPHILS PERCENT AUTO 3 % (0-6); Hematocrit 41.3 % (33.0-51.0); Hemoglobin 14.0 g/dL (11.5-16.0); IMMATURE GRAN ABSOLUTE AUTO 0.03 K/mm3 (0.00-0.10); IMMATURE GRAN PERCENT AUTO 0 % (0-1); LYMPHOCYTES ABSOLUTE AUTO 0.77 K/mm3 (0.84-5.20); LYMPHOCYTES PERCENT AUTO 9 % (21-46); MONOCYTES ABSOLUTE AUTO 0.59 K/mm3 (0.16-1.47); MONOCYTES PERCENT AUTO 7 % (4-13); Mean Corpuscular HGB Conc 33.9 g/dL (31.5-36.5); Mean Corpuscular Volume 98 fL (80-100); NEUTROPHILS ABSOLUTE AUTO 6.98 K/mm3 (1.96-9.15); NEUTROPHILS PERCENT AUTO 81 % (41-73); NRBC ABSOLUTE 0.00 K/mm3 (0.00-0.02); NRBC Auto 0.0 /100 WBC (0.0-0.2); Platelet Count 194 K/mm3 (150-400); RDW Coefficient Variation 13.2 % (11.7-14.2); RDW Standard Deviation 47.6 fL (35.1-46.3)
[2024-11-07 04:32] LABS: Alanine Aminotransfer (ALT/SGP 19.0 U/L (12-78); Albumin, Blood 2.8 g/dL (3.4-5.0); Albumin/Globulin Ratio 1.0 (0.8-1.8); Anion Gap 8.0 mmol/L (3-11); Aspartate Aminotrans (AST/SGOT 40.0 U/L (12-37); Bilirubin, Total 1.2 mg/dL (0.1-1.0); Blood Urea Nitrogen 27.0 mg/dL (8-24); CO2, Blood 32.0 mmol/L (21-32); Calcium, Blood 8.9 mg/dL (8.5-10.1); Chloride, Blood 99.0 mmol/L (98-108); Creatinine, Blood 0.83 mg/dL (0.40-1.00); Globulin, Blood 2.7 g/dL (2.2-4.0); Glucose, Blood 145.0 mg/dL (70-99); Potassium, Blood 3.5 mmol/L (3.5-5.5); Sodium, Blood 135.0 mmol/L (136-145); Total Protein, Blood 5.5 g/dL (6.4-8.2)
--- NOTE | 2024-11-07 05:10 | NUR ---
SHIFT SUMMARY PT REMAINS A&OX4. 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 PT UPSET WITH HOW OFTEN SHE HAD TO PEE THROUGHOUT NIGHT D/T DIURETICS HOWEVER WAS ABLE TO WALK TO BATHROOM WITH STANDBY ASSIST. 24HR URINE COLLECTION STILL ACTIVE. SEE CHART FOR ACCURATE I&Os. PT REMAINS ON TELE NSR IN 80s. VSS ON RA >96%. R RCA SITE REMAINS CDI. NO FURTHER QUESTIONS OR COCNERNS AT THIS TIME. WILL CONTINUE WITH PLAN OF CARE AT THIS TIME. CALL LIGHT WITHIN REACH.
[2024-11-07 07:57] VITALS: BP 126/89
[2024-11-07 11:42] VITALS: BP 128/93
[2024-11-07] MEDS ORDERED: Polyethylene Glycol 3350 17 gm PO PRN (11:50)
--- NOTE | 2024-11-07 12:29 | NUR ---
MORNING SUMMARY THE PT IS A&OX4, CLEARED BY PHYSICAL THERPAY TO BE IND IN THE ROOM, AND SHE MAKES HER NEEDS KNOWN. SHE HAS A 24HR URINE IN PROGRESS AND IT IS SITTING ON ICE. THE SAMPLE WILL BE COMPLETED AT 1455. PT AWARE AND CALLING APPROPRIATELY. THE PT DENIES HAVING ABOWEL MOVMENT SINCE COMING TO THE HOSPITAL. DR. AMBRIZ ORDERED BOWEL MEDICATIONS. ON TELE THE PT HAS BEEN SR 70'S-80'S AND BP STABLE. SHE HAS BEEN ON RA W/ SP02 >93% AND THE PT DENIES ANY SOB. DR. AMBRIZ SIGNED THE PT'S POLST THIS AFTERNOON. PLAN FOR DISCHARGE 11/08 W/ HOME HEALTH. [facility] HAS ALREADY BEEN IN CONTACT WITH THE PT.. SEE NOTES FOR UPDATES
[2024-11-07 13:09] LABS: BASOPHILS ABSOLUTE AUTO 0.03 K/mm3 (0.00-0.23); BASOPHILS PERCENT AUTO 0 % (0-2); EOSINOPHILS ABSOLUTE AUTO 0.28 K/mm3 (0.00-0.68); EOSINOPHILS PERCENT AUTO 3 % (0-6); Hematocrit 44.4 % (33.0-51.0); Hemoglobin 15.1 g/dL (11.5-16.0); IMMATURE GRAN ABSOLUTE AUTO 0.03 K/mm3 (0.00-0.10); IMMATURE GRAN PERCENT AUTO 0 % (0-1); LYMPHOCYTES ABSOLUTE AUTO 0.67 K/mm3 (0.84-5.20); LYMPHOCYTES PERCENT AUTO 7 % (21-46); MONOCYTES ABSOLUTE AUTO 0.60 K/mm3 (0.16-1.47); MONOCYTES PERCENT AUTO 6 % (4-13); Mean Corpuscular HGB Conc 34.0 g/dL (31.5-36.5); Mean Corpuscular Volume 97 fL (80-100); NEUTROPHILS ABSOLUTE AUTO 7.71 K/mm3 (1.96-9.15); NEUTROPHILS PERCENT AUTO 83 % (41-73); NRBC ABSOLUTE 0.00 K/mm3 (0.00-0.02); NRBC Auto 0.0 /100 WBC (0.0-0.2); Platelet Count 224 K/mm3 (150-400); RDW Coefficient Variation 13.2 % (11.7-14.2); RDW Standard Deviation 46.6 fL (35.1-46.3)
[2024-11-07 13:43] LABS: Alanine Aminotransfer (ALT/SGP 22.0 U/L (12-78); Albumin, Blood 3.4 g/dL (3.4-5.0); Albumin/Globulin Ratio 1.2 (0.8-1.8); Anion Gap 9.0 mmol/L (3-11); Aspartate Aminotrans (AST/SGOT 43.0 U/L (12-37); Bilirubin, Total 1.3 mg/dL (0.1-1.0); Blood Urea Nitrogen 26.0 mg/dL (8-24); CO2, Blood 34.0 mmol/L (21-32); Calcium, Blood 9.8 mg/dL (8.5-10.1); Chloride, Blood 96.0 mmol/L (98-108); Creatinine, Blood 0.78 mg/dL (0.40-1.00); Globulin, Blood 2.8 g/dL (2.2-4.0); Glucose, Blood 137.0 mg/dL (70-99); Potassium, Blood 3.8 mmol/L (3.5-5.5); Sodium, Blood 135.0 mmol/L (136-145); Total Protein, Blood 6.2 g/dL (6.4-8.2)
[2024-11-07] MEDS ORDERED: GLIP5 PO (15:25)
[2024-11-07] MEDS ORDERED: METOPROLOL SUCC25 MG PO (15:27)
[2024-11-07] MEDS ORDERED: ROSUVASTATIN CA20 MG PO (15:27)
[2024-11-07] MEDS ORDERED: SPIRONOLACTONE25 MG PO (15:27)
[2024-11-07 15:47] VITALS: BP 133/92
--- NOTE | 2024-11-07 17:03 | NUR ---
END OF SHIFT SUMMARY THE PT IS A&OX4, IND IN THE ROOM, AND SHE CAN MAKE HER NEEDS KNOWN. PLAN FOR DISCHARGE 11/08 WITH [facility]. HOLA Woodall CLEARED THE PT TO BE IND IN THE ROOM. THE PT HAS NOT BEEN COMPLIANT WITH HER MEDICATIONS AT HOME, AND IS WEARY ON TAKING NEW MEDICATIONS THAT WERE PRESCRIBED AT [facility]. EDUCATION HAS BEEN PROVIDED TO THE PT AND PT'S CLOSE FRIENDS. HER MEDICATION REC WAS RECONCILLED USING [facility]. THE PT DOES STATE THAT SHE HAS NOT BEEN TAKING ANY MEDICATIONS FOR AT LEAST THREE MONTHS. HER 24HR URINE WAS COMPLETED AND SENT TO LAB TODAY AT 1455. MIRALX GIVEN TO THE PT D/T ONGOING CONSTIPATION. NO ACUTE EVENTS THIS SHIFT. SEE NOTES FOR UPDATES .
[2024-11-07 18:11] LABS: Protein, Urine Quantitative 7.4 mg/dL (0.0-11.9)
[2024-11-07 20:24] VITALS: BP 128/90
[2024-11-07 23:56] VITALS: BP 116/79
[2024-11-08 03:11] VITALS: BP 138/90
--- NOTE | 2024-11-08 06:45 | NUR ---
SHIFT SUMMARY PATIENT ALERT AND ORIENTED X4, INDEPENDENT TO THE RESTROOM. REPORTED SOME BACK PAIN LAST NIGHT, PATIENT PROVIDED WITH HEATING PAD AND PATIENT REPORTED THAT IT WAS EFFECTVE. ON ROOM AIR WITH SPO2 >90%, SOME DYSPNEA NOTED ON EXERTION. VITAL SIGNS STABLE. WILL CONTINUE TO MONITOR. CALL LIGHT WITHIN REACH.
[2024-11-08 08:46] VITALS: BP 127/85
[2024-11-08] MEDS ORDERED: Torsemide 20 MG TAB PO SCH (09:00)
[2024-11-08] MEDS ORDERED: ATOR40TA PO (11:23)
[2024-11-08] MEDS ORDERED: TICA90TA PO (11:23)
[2024-11-08] MEDS ORDERED: LOSA25 PO (11:23)
[2024-11-08] MEDS ORDERED: TORSE20 PO (11:24)
[2024-11-08] MEDS ORDERED: JARDIANCE10 MG PO (11:25)
[2024-11-08] MEDS ORDERED: ASPI81CH PO (11:25)
[2024-11-08 11:48] VITALS: BP 132/89
--- NOTE | 2024-11-08 13:54 | NUR ---
PT IS A&Ox4 AND ABLE TO MAKE NEEDS KNOWN. SHE IS ON RA W/O2 SATS >90%. SHE IS INDEPENDENT W/AMBULATION IN THE ROOM. I WENT OVER DISCHARGE INSTRUCTIONS AND MEDICATIONS WITH HER AND ANSWERED ALL QUESTIONS SHE HAD. PT IS SITTING UP IN BED WATCHING TV WAITING FOR HER RIDE. NO NEEDS OR CONCERNS NOTED @ THIS TIME. BED IN LOW POSITION, CALL LIGHT AND PERSONAL BELONGINGS IN REACH.
== END 2024-11-08 14:13 | disposition home health service (06) | DRG 321 ==
LOC: EDBD 10:49 → ER 10:49 → PCU 15:16 → ICUE 15:16 → PCU 15:16 → EDBEDREQ 16:14 → ICUE 17:06 → PCU 11-05 03:07
PROVIDERS: Emergency Medicine; Internal Medicine; Internal Medicine Cardiovascular Disease; Nurse Practitioner Acute Care; ADMIT Hospitalist
PROC: 3E03329 Introduction of Other Anti-infective into Peripheral Vein, Percutaneous Approach (ICD-10-PCS; 2024-11-03)
PROC: 027034Z Dilation of Coronary Artery, One Artery with Drug-eluting Intraluminal Device, Percutaneous Approach (ICD-10-PCS; principal; 2024-11-04)
PROC: 0W9G3ZZ Drainage of Peritoneal Cavity, Percutaneous Approach (ICD-10-PCS; 2024-11-04)
PROC: B2111ZZ Fluoroscopy of Multiple Coronary Arteries using Low Osmolar Contrast (ICD-10-PCS; 2024-11-04)
DX: I13.0 Hypertensive heart and chronic kidney disease with heart failure and stage 1 through stage 4 chronic kidney disease, or unspecified chronic kidney disease (principal); I21.4 Non-ST elevation (NSTEMI) myocardial infarction; I50.23 Acute on chronic systolic (congestive) heart failure; R57.0 Cardiogenic shock; I31.39 Other pericardial effusion (noninflammatory); E87.20 Acidosis, unspecified; R18.8 Other ascites; N39.0 Urinary tract infection, site not specified; Z66 Do not resuscitate; I08.1 Rheumatic disorders of both mitral and tricuspid valves; I27.20 Pulmonary hypertension, unspecified; I25.10 Atherosclerotic heart disease of native coronary artery without angina pectoris; K59.00 Constipation, unspecified; E11.51 Type 2 diabetes mellitus with diabetic peripheral angiopathy without gangrene; E11.65 Type 2 diabetes mellitus with hyperglycemia; G47.33 Obstructive sleep apnea (adult) (pediatric); I48.91 Unspecified atrial fibrillation; N18.31 Chronic kidney disease, stage 3a; I16.0 Hypertensive urgency; E11.22 Type 2 diabetes mellitus with diabetic chronic kidney disease; I44.7 Left bundle-branch block, unspecified; T50.916A Underdosing of multiple unspecified drugs, medicaments and biological substances, initial encounter; Z60.2 Problems related to living alone; Z88.1 Allergy status to other antibiotic agents; Z88.5 Allergy status to narcotic agent; Z79.84 Long term (current) use of oral hypoglycemic drugs; Z91.148 Patient's other noncompliance with medication regimen for other reason; Z87.891 Personal history of nicotine dependence; Z91.128 Patient's intentional underdosing of medication regimen for other reason; Z95.5 Presence of coronary angioplasty implant and graft
CPT/HCPCS: 36415; 49083; 51702; 71045; 74174; 74176; 76937; 80048; 80053; 80069; 81001; 82040; 82042; 82945; 82947; 83605; 83615; 83690; 83735; 83880; 83986; 84100; 84156; 84157; 84443; 84478; 84484; 85014; 85018; 85025; 85347; 85610; 85730; 86140; 87040; 87070; 87075; 87086; 87205; 88108; 88305; 88342; 89051; 93005; 93010; 93306; 93454; 93922; 96374; 97110; 97161; 97530; 99152; 99153; 99285-25; A6590; A9270; C1769; C1874; C1887; C1894; C9600; J0696; J1644; J1650; J1938; J2405; J3010; J3246; J7030; J7040; J7050; P9047; P9612; Q9967